=== PATIENT | male | born 2000 | race Caucasian/White ===

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

== ENCOUNTER 2018-08-27 11:49 | Emergency (ER) | payer OTHER ==
[~2018-08-27] VITALS: Ht 180.3 cm; Wt 99.8 kg
[~2018-08-27 11:49] MED LIST changes: +ONDA4TAB8 SL
--- OUTSIDE RECORDS SUMMARY | 2018-08-27 11:55 | XMS REPORT | Continuity of Care Document ---
Author Organization Unknown Address Unknown Allergies Active Description Code Type Severity Reaction Onset Reported/Identified Relationship to Patient Clinical Status Yes No Known Drug Allergies [id number] Drug Allergy Unknown N/A 02/14/2010 Medications There [...] Ot Y99.8 05/02/2015 REINIER RAYA Ot K29.70 GASTRITIS, UNSPECIFIED, WITHOUT BLEEDING 05/02/2015 REINIER RAYA Ot R51 HEADACHE 07/04/2017 MARLENE ESCOBAR, REANNA Chavira Ot G43.109 MIGRAINE WITH AURA, NOT INTRACTABLE, W/O 07/04/2017 REANNA ROSARIO MD Ot R11.2 NAUSEA WITH VOMITING, UNSPECIFIED 07/04/2017 REANNA ROSARIO MD Ot Z87.820 PERSONAL HISTORY OF TRAUMATIC BRAIN INJU 07/04/2017 Ot S83.511A SPRAIN OF ANTERIOR CRUCIATE LIGAMENT OF 07/04/2017 Ot X58.XXXA EXPOSURE TO OTHER SPECIFIED FACTORS, INI 07/04/2017 Ot Y99.8 OTHER EXTERNAL CAUSE STATUS 07/06/2017 REANNA ROSARIO MD, Ot G43.109 MIGRAINE WITH AURA, NOT INTRACTABLE, W/O 07/06/2017 REANNA ROSARIO MD, Ot R11.2 NAUSEA WITH VOMITING, UNSPECIFIED 07/06/2017 REANNA ROSARIO MD, Ot Z87.820 PERSONAL HISTORY OF TRAUMATIC BRAIN INJU 07/10/2017 REANNA ROSARIO MD, Ot G43.109 MIGRAINE WITH AURA, NOT INTRACTABLE, W/O 07/10/2017 REANNA ROSARIO MD, Ot R11.2 NAUSEA WITH VOMITING, UNSPECIFIED 07/10/2017 REANNA ROSARIO MD, Ot Z87.820 PERSONAL HISTORY OF TRAUMATIC BRAIN INJU Procedures There is no data. Results Test Result Range Complete blood count (CBC) with automated white blood cell (WBC) differential - 07/04/17 06:34 Blood leukocytes automated count (number/volume) 9.8 10*3/uL 4.3-11.0 Blood erythrocytes automated count (number/volume) 5.16 10*6/uL 4.35-5.85 Venous blood hemoglobin measurement (mass/volume) 15.5 g/dL 13.3-17.7 Blood hematocrit (volume fraction) 42 % 40-54 Automated erythrocyte mean corpuscular volume 81 [foz_us] 80-99 Automated erythrocyte mean corpuscular hemoglobin (mass per erythrocyte) 30 pg 25-34 Automated erythrocyte mean corpuscular hemoglobin concentration measurement ( mass/volume) 37 g/dL 32-36 Automated erythrocyte distribution width ratio 12.2 % 10.0-14.5 Automated blood platelet count (count/volume) 239 10*3/uL 130-400 Automated blood platelet mean volume measurement 10.3 [foz_us] 7.4-10.4 Automated blood neutrophils/100 leukocytes 71 % 42-75 Automated blood lymphocytes/100 leukocytes 19 % 12-44 Blood monocytes/100 leukocytes 9 % 0-12 Automated blood eosinophils/100 leukocytes 1 % 0-10 Automated blood basophils/100 leukocytes 1 % 0-10 Blood neutrophils automated count (number/volume) 6.9 10*3 1.8-7.8 Blood lymphocytes automated count (number/volume) 1.8 10*3 1.0-4.0 Blood monocytes automated count (number/volume) 0.9 10*3 0.0-1.0 Automated eosinophil count 0.1 10*3/uL 0.0-0.3 Automated blood basophil count (count/volume) 0.1 10*3/uL 0.0-0.1 Comprehensive metabolic panel - 07/04/17 06:34 Serum or plasma sodium measurement (moles/volume) 139 mmol/L 135-145 Serum or plasma potassium measurement (moles/volume) 3.7 mmol/L 3.6-5.0 Serum or plasma chloride measurement (moles/volume) 107 mmol/L 98-107 Carbon dioxide 24 mmol/L 21-32 Serum or plasma anion gap determination (moles/volume) 8 mmol/L 5-14 Serum or plasma urea nitrogen measurement (mass/volume) 12 mg/dL 7-18 Serum or plasma creatinine measurement (mass/volume) 1.01 mg/dL 0.60-1.30 Serum or plasma urea nitrogen/creatinine mass ratio 12 NRG Serum or plasma creatinine measurement with calculation of estimated glomerular filtration rate > NRG Serum or plasma glucose measurement (mass/volume) 93 mg/dL 70-105 Serum or plasma calcium measurement (mass/volume) 10.0 mg/dL 8.5-10.1 Serum or plasma total bilirubin measurement (mass/volume) 0.8 mg/dL 0.1-1.0 Serum or plasma alkaline phosphatase measurement (enzymatic activity/volume) 72 U/L 60-350 Serum or plasma aspartate aminotransferase measurement (enzymatic activity/ volume) 24 U/L 5-34 Serum or plasma alanine aminotransferase measurement (enzymatic activity/volume ) 30 U/L 0-55 Serum or plasma protein measurement (mass/volume) 7.4 g/dL 6.4-8.2 Serum or plasma albumin measurement (mass/volume) 4.7 g/dL 3.2-4.5 Magnesium - 07/04/17 06:34 Magnesium 2.4 mg/dL 1.8-2.4 Encounters ACCT No. Visit Date/Time Discharge Status Pt. Type Provider Facility Loc./Unit Complaint [id number] 07/04/2017 05:30:00 07/04/2017 08:34:00 DIS Emergency MARLENE ESCOBAR, REANNA Chavira [facility] ER NAUSEA HEAD PRESSURE [id number] 05/02/2015 19:16:00 05/02/2015 21:05:00 DIS Emergency REINIER RAYA [facility] ER NAUSEA,CP,LIGHTHEADED [id number] 02/04/2015 16:04:00 Document Registration [id number] 02/14/2010 11:01:00 Document Registration [id number] 12/26/2016 00:00:00 12/26/2016 23:59:00 DIS Outpatient AGUILA TEMPLETON
[2018-08-27] MEDS ORDERED: fentaNYL INJECTION 100 MCG/2 ML AMP IVP ONE ×2 (12:45→13:45)
[2018-08-27] MEDS ORDERED: ONDANSETRON 4 MG/2 ML (SDV) Z0FRAN IVP ONE (12:45)
[2018-08-27] MEDS ORDERED: NS IV 1000 ML 1,000 ML IV SCH (12:45)
[2018-08-27 12:50] LABS: BASOPHILS % (AUTO) 0 % (0-10); EOSINOPHILS % (AUTO) 0 % (0-10); HEMATOCRIT 46 % (40-54); HEMOGLOBIN 16.2 G/DL (13.3-17.7); LYMPHOCYTES # (AUTO) 0.8 X 10^3 (1.0-4.0); LYMPHOCYTES % (AUTO) 12 % (12-44); MEAN CORPUSCULAR HEMOGLOBIN 30 PG (25-34); MEAN CORPUSCULAR HGB CONC 36 G/DL (32-36); MEAN CORPUSCULAR VOLUME 84 FL (80-99); MEAN PLATELET VOLUME 10.6 FL (7.4-10.4); MONOCYTES # (AUTO) 0.6 X 10^3 (0.0-1.0); MONOCYTES % (AUTO) 8 % (0-12); NEUTROPHILS # (AUTO) 5.7 X 10^3 (1.8-7.8); NEUTROPHILS % (AUTO) 80 % (42-75); PLATELET COUNT 283 10^3/uL (130-400); RED CELL DISTRIBUTION WIDTH 12.2 % (10.0-14.5); WHITE BLOOD COUNT 7.2 10^3/uL (4.3-11.0)
[2018-08-27] MEDS ORDERED: IOHEXOL 350 MG/ML 100 ML (OMNIPAQUE 350) VIAL IV ONE (13:00)
[2018-08-27] MEDS ORDERED: HOLD METFORMIN - RECEIVED CONTRAST 20 ML VIAL IV SCH (13:00)
[2018-08-27] MEDS ORDERED: NS 100 ML (IVPB) BAG IV ONE (13:00)
[2018-08-27] MEDS ORDERED: CATHETER FLUSH 10 ML SYR IV PRN (13:00)
[2018-08-27 13:03] LABS: ALANINE AMINOTRANSFERASE 41 U/L (0-55); ALBUMIN 5.3 GM/DL (3.2-4.5); ALKALINE PHOSPHATASE 87 U/L (40-136); AMYLASE 54 U/L (25-125); BUN/CREATININE RATIO 13; CALCIUM 10.5 MG/DL (8.5-10.1); CARBON DIOXIDE 18 MMOL/L (21-32); CHLORIDE 105 MMOL/L (98-107); CREATININE SERUM 1.23 MG/DL (0.60-1.30); GFR ESTIMATED > 60; GLUCOSE 185 MG/DL (70-105); LIPASE 33 U/L (8-78); POTASSIUM 3.8 MMOL/L (3.6-5.0); SODIUM 138 MMOL/L (135-145); TOTAL PROTEIN 8.4 GM/DL (6.4-8.2)
--- NOTE | 2018-08-27 13:35 | ED Abdominal Pain ---
General Chief Complaint: Abdominal/GI Problems Stated Complaint: N,V Nursing Triage Note: PT PRESENTS TO ED WITH COMPLAINTS OF R LOWER ABDOMINAL PAIN AND N/V EVERY 30 MIN SINCE 0300 THIS AM. Sepsis Screen: No Definite Risk Source of Information: Patient Exam Limitations: No Limitations History of Present Illness Date Seen by Provider: Aug 27, 2018 Time Seen by Provider: 12:40 Initial Comments 18-year-old male who presents to the emergency room with complaints of right lower quadrant abdominal pain and nausea and vomiting that started at 3 AM this morning. He reports that the pain is sharp and radiates into his groin. He denies fevers, constipation, diarrhea. Timing/Duration: 4-6 Hours Severity/Quality: Sharp Location: RLQ Radiation: Groin (right groin) Associated Symptoms: Nausea/Vomiting Allergies and Home Medications Allergies Coded Allergies: No Known Drug Allergies (Unverified , 02/14/10) Home Medications No Active Prescriptions or Reported Meds Patient Home Medication List Home Medication List Reviewed: Yes Review of Systems Review of Systems Constitutional: see HPI; No chills, No fever Gastrointestinal: See HPI, Abdominal Pain, Nausea, Vomiting All Other Systems Reviewed Negative Unless Noted: Yes Past Dnrmnuf-Hkqulc-Usxmqq Hx Past Med/Social Hx: Reviewed Nursing Past Med/Soc Hx Patient Social History Alcohol Use: Occasionally Uses Recreational Drug Use: Yes Drug of Choice: OCC MARIJUANA Smoking Status: Never a Smoker Recent Foreign Travel: No Contact w/Someone Who Travel: No Recent Infectious Disease Expo: No Physical Abuse: No Sexual Abuse: No Mistreated: No Fear: No Immunizations Up To Date PED Vaccines UTD: Yes Past Medical History Surgeries: Yes (R KNEE) Orthopedic Respiratory: No Cardiac: No Neurological: Yes (MULTIPLE CONCUSSIONS) Concussion, Headaches /Migraines Reproductive Disorders: No Sexually Transmitted Disease: No Genitourinary: No Gastrointestinal: No Musculoskeletal: No Endocrine: No HEENT: No Cancer: No Psychosocial: No Integumentary: No Blood Disorders: No Family Medical History Reviewed Nursing Family Hx No Pertinent Family Hx Physical Exam Vital Signs Vital Signs - First Documented 08/27/18 12:30 Temp 98.6 Pulse 127 Resp 20 B/P (MAP) 157/69 (98) Pulse Ox 98 Capillary Refill : Less Than 3 Seconds Height/Weight/BMI Height: 5'11.00" Weight: 220lbs. oz. 99.542342ab; 28.12 BMI Method:Stated General Appearance: WD/WN, no apparent distress Respiratory: chest non-tender, lungs clear, normal breath sounds, no respiratory distress, no accessory muscle use Cardiovascular: normal peripheral pulses, regular rate, rhythm, no edema, no gallop, no JVD, no murmur Gastrointestinal: normal bowel sounds, soft, no organomegaly, no pulsatile mass , rebound, tenderness Extremities: normal capillary refill Neurologic/Psychiatric: alert, normal mood/affect, oriented x 3 Skin: normal color, warm/dry Progress/Results/Core Measures Results/Orders Lab Results Laboratory Tests Test 08/27/18 12:28 08/27/18 13:42 Range/Units White Blood Count 7.2 4.3-11.0 10^3/uL Red Blood Count 5.45 4.35-5.85 10^6/uL Hemoglobin 16.2 13.3-17.7 G/DL Hematocrit 46 40-54 % Mean Corpuscular Volume 84 80-99 FL Mean Corpuscular Hemoglobin 30 25-34 PG Mean Corpuscular Hemoglobin Concent 36 32-36 G/DL Red Cell Distribution Width 12.2 10.0-14.5 % Platelet Count 283 130-400 10^3/uL Mean Platelet Volume 10.6 H 7.4-10.4 FL Neutrophils (%) (Auto) 80 H 42-75 % Lymphocytes (%) (Auto) 12 12-44 % Monocytes (%) (Auto) 8 0-12 % Eosinophils (%) (Auto) 0 0-10 % Basophils (%) (Auto) 0 0-10 % Neutrophils # (Auto) 5.7 1.8-7.8 X 10^3 Lymphocytes # (Auto) 0.8 L 1.0-4.0 X 10^3 Monocytes # (Auto) 0.6 0.0-1.0 X 10^3 Eosinophils # (Auto) 0.0 0.0-0.3 10^3/uL Basophils # (Auto) 0.0 0.0-0.1 10^3/uL Sodium Level 138 135-145 MMOL/L Potassium Level 3.8 3.6-5.0 MMOL/L Chloride Level 105 98-107 MMOL/L Carbon Dioxide Level 18 L 21-32 MMOL/L Anion Gap 15 H 5-14 MMOL/L Blood Urea Nitrogen 16 7-18 MG/DL Creatinine 1.23 0.60-1.30 MG/DL Estimat Glomerular Filtration Rate > 60 BUN/Creatinine Ratio 13 Glucose Level 185 H 70-105 MG/DL Calcium Level 10.5 H 8.5-10.1 MG/DL Corrected Calcium 8.5-10.1 MG/DL Total Bilirubin 1.0 0.1-1.0 MG/DL Aspartate Amino Transf (AST/SGOT) 33 5-34 U/L Alanine Aminotransferase (ALT/SGPT) 41 0-55 U/L Alkaline Phosphatase 87 40-136 U/L Total Protein 8.4 H 6.4-8.2 GM/DL Albumin 5.3 H 3.2-4.5 GM/DL Amylase Level 54 25-125 U/L Lipase 33 8-78 U/L Urine Color YELLOW Urine Clarity SLIGHTLY CLOUDY Urine pH 5 5-9 Urine Specific [place] 1.010 L 1.016-1.022 Urine Protein 2+ H NEGATIVE Urine Glucose (UA) NEGATIVE NEGATIVE Urine Ketones 1+ H NEGATIVE Urine Nitrite NEGATIVE NEGATIVE Urine Bilirubin NEGATIVE NEGATIVE Urine Urobilinogen 1 NORMAL MG/DL Urine Leukocyte Esterase 1+ H NEGATIVE Urine RBC (Auto) 1+ H NEGATIVE Urine RBC RARE /HPF Urine WBC RARE /HPF Urine Squamous Epithelial Cells NONE /HPF Urine Crystals NONE /LPF Urine Bacteria NEGATIVE /HPF Urine Casts NONE /LPF Urine Mucus NEGATIVE /LPF Urine Culture Indicated NO My Orders Orders - LEONOR CHINCHILLA Comprehensive Metabolic Panel (08/27/18 12:44) Lipase (08/27/18 12:44) Amylase (08/27/18 12:44) Ua Culture If Indicated (08/27/18 12:44) Ed Iv/Invasive Line Start (08/27/18 12:44) Cbc With Automated Diff (08/27/18 12:44) Ct Abd/Pelv W (Appendicitis) (08/27/18 12:44) Fentanyl Injection (Sublimaze Injection (08/27/18 12:45) Ns Iv 1000 Ml (Sodium Chloride 0.9%) (08/27/18 12:45) Ondansetron Injection (Zofran Injectio (08/27/18 12:45) Iohexol Injection (Omnipaque 350 Mg/Ml 1 (08/27/18 13:00) Received Contrast (Hold Metformin- Contr (08/27/18 13:00) Sodium Chloride Flush (Catheter Flush Sy (08/27/18 13:00) Ns (Ivpb) (Sodium Chloride 0.9% Ivpb Bag (08/27/18 13:00) Fentanyl Injection (Sublimaze Injection (08/27/18 13:45) Hydrocodone/Apap 5/325 Tablet (Lortab 5 (08/27/18 14:45) Hyoscyamine Sl Tablet (Levsin Sl Tablet) (08/27/18 14:45) Medications Given in ED Vital Signs/I&O 08/27/18 08/27/18 12:30 15:07 Temp 98.6 Pulse 127 59 Resp 20 20 B/P (MAP) 157/69 (98) 160/87 (111) Pulse Ox 98 99 08/29/18 00:00 Intake Total 1000 ml Balance 1000 ml Blood Pressure Mean: 98 Progress Progress Note : Time: 14:38 Progress Note I have bandar and evaluated the patient. I have informed him of his laboratory and imaging studies. His pain and nausea has resolved after medication. He agrees with plans of care, plans for discharge, return precautions were given. Departure Impression Primary Impression: Gastritis Disposition: 01 HOME, SELF-CARE Condition: Stable/Unchanged Departure-Patient Inst. Decision time for Depature: 14:38 Referrals: NO,LOCAL PHYSICIAN (PCP/Family) Primary Care Physician Patient Instructions: Viral Gastroenteritis, Adult (DC) Add. Discharge Instructions: Take medications as directed. Follow-up with your primary care provider within 1 week for recheck. Clear liquid diet for the next 24 hours and advance as tolerated. Return back to the emergency room for worsening symptoms or concerns as needed. All discharge instructions reviewed with patient and/or family. Voiced understanding. Scripts No Active Prescriptions or Reported Meds LEONOR CHINCHILLA Aug 27, 2018 13:35
--- NOTE | 2018-08-27 13:46 | Diagnostic Imaging Report ---
PROCEDURE: CT abdomen and pelvis with contrast, rule out appendicitis. TECHNIQUE: Multiple contiguous axial images were obtained through the abdomen and pelvis after the administration of intravenous contrast. INDICATION: Abdominal pain, nausea, and vomiting. COMPARISON: No priors. FINDINGS: There is no appendicitis. There is no diverticulitis. There is no evidence for bowel, biliary, or urinary tract obstruction. There is no ascites, abscess, hematoma, or other fluid collection. No pneumatosis or free gas. The liver, gallbladder, bile ducts, spleen, adrenals, and pancreas all nonacute. The aortoiliac vessels are nonaneurysmal. No ascites, abscess, hematoma, or other fluid collection. Prostate, seminal vesicles, and urinary bladder are unremarkable. The lung bases and the osseous structures appeared nonacute. IMPRESSION: No obstructive features, inflammatory process, or acute-appearing abdominopelvic abnormalities. Dictated by: Dictated on workstation # [id number]
[2018-08-27 13:48] LABS: BILIRUBIN,URINE NEGATIVE (NEGATIVE); CLARITY,URINE SLIGHTLY CLOUDY; COLOR,URINE YELLOW; GLUCOSE, URINE (UA) NEGATIVE (NEGATIVE); KETONES,URINE 1+ (NEGATIVE); LEUKOCYTE ESTERASE ,URINE 1+ (NEGATIVE); NITRITE,URINE NEGATIVE (NEGATIVE); PH,URINE 5 (5-9); PROTEIN,URINE 2+ (NEGATIVE); UROBILINOGEN,URINE 1 MG/DL (NORMAL)
[2018-08-27 13:55] LABS: BACTERIA,URINE NEGATIVE /HPF; RBC,URINE RARE /HPF; WBC,URINE RARE /HPF
[2018-08-27] MEDS ORDERED: ACHD5005 PO (14:40)
[2018-08-27] MEDS ORDERED: HYOS0.1283 SL (14:40)
[2018-08-27] MEDS ORDERED: ONDN4T PO (14:40)
[2018-08-27] MEDS ORDERED: HYDROcodone/APAP 5 MG/325 MG (LORTAB) TAB PO ONE (14:45)
[2018-08-27] MEDS ORDERED: HYOSCYAMINE 0.125 MG (LEVSIN) TAB PO ONE (14:45)
[2018-08-27 15:07] VITALS: BP 160/87
== END 2018-08-27 15:07 | disposition home or self-care (01) ==
LOC: EDUNIT# 11:49 → ER 11:50
DX: K29.70 Gastritis, unspecified, without bleeding (principal); G43.909 Migraine, unspecified, not intractable, without status migrainosus; F12.10 Cannabis abuse, uncomplicated
CPT/HCPCS: 36415; 74177; 80053; 81000; 82150; 83690; 85025

== ENCOUNTER 2018-08-28 23:37 | Inpatient (IN) | payer OTHER ==
[~2018-08-28] VITALS: Ht 180.3 cm; Wt 99.3 kg
[~2018-08-28 23:37] MED LIST changes: +ACHD5005 PO; +HYOS0.1283 SL; +ONDN4T PO
--- OUTSIDE RECORDS SUMMARY | 2018-08-28 23:44 | XMS REPORT | Continuity of Care Document ---
Author Organization Unknown Address Unknown Allergies Active Description Code Type Severity Reaction Onset Reported/Identified Relationship to Patient Clinical Status Yes No Known Drug Allergies [id number] Drug Allergy Unknown N/A 02/14/2010 Medications There [...] Status Pt. Type Provider Facility Loc./Unit Complaint [id number] 07/04/2017 05:30:00 07/04/2017 08:34:00 DIS Emergency MARLENE ESCOBAR, REANNA Chavira [facility] ER NAUSEA HEAD PRESSURE [id number] 05/02/2015 19:16:00 05/02/2015 21:05:00 DIS Emergency REINIER RAYA [facility] ER NAUSEA,CP,LIGHTHEADED [id number] 02/04/2015 16:04:00 Document Registration [id number] 02/14/2010 11:01:00 Document Registration [id number] 12/26/2016 00:00:00 12/26/2016 23:59:00 DIS Outpatient AGUILA TEMPLETON
[2018-08-29] MEDS ORDERED: NS IV 1000 ML 1,000 ML IV ONE ×2 (00:09→00:18)
[2018-08-29 00:16] LABS: BASOPHILS % (AUTO) 0 % (0-10); EOSINOPHILS # (AUTO) 0.2 10^3/uL (0.0-0.3); EOSINOPHILS % (AUTO) 2 % (0-10); HEMATOCRIT 46 % (40-54); HEMOGLOBIN 16.2 G/DL (13.3-17.7); LYMPHOCYTES % (AUTO) 10 % (12-44); MEAN CORPUSCULAR HEMOGLOBIN 29 PG (25-34); MEAN CORPUSCULAR HGB CONC 35 G/DL (32-36); MEAN CORPUSCULAR VOLUME 83 FL (80-99); MEAN PLATELET VOLUME 9.9 FL (7.4-10.4); MONOCYTES # (AUTO) 0.9 X 10^3 (0.0-1.0); MONOCYTES % (AUTO) 9 % (0-12); NEUTROPHILS % (AUTO) 79 % (42-75); PLATELET COUNT 237 10^3/uL (130-400); RED CELL DISTRIBUTION WIDTH 12.4 % (10.0-14.5); WHITE BLOOD COUNT 10.1 10^3/uL (4.3-11.0)
[2018-08-29] MEDS ORDERED: PROMETHAZINE INJ 25 MG/ML (PHENERGAN) AMP IVP ONE (00:30)
[2018-08-29] MEDS ORDERED: ONDANSETRON 4 MG/2 ML (SDV) Z0FRAN IVP ONE (00:30)
[2018-08-29] MEDS ORDERED: FAMOTIDINE 20MG/2ML IV (PEPCID) IVP ONE (00:30)
[2018-08-29 00:48] LABS: BILIRUBIN,URINE NEGATIVE (NEGATIVE); CLARITY,URINE CLEAR; COLOR,URINE YELLOW; GLUCOSE, URINE (UA) NEGATIVE (NEGATIVE); KETONES,URINE 3+ (NEGATIVE); LEUKOCYTE ESTERASE ,URINE 1+ (NEGATIVE); NITRITE,URINE NEGATIVE (NEGATIVE); PH,URINE 6 (5-9); PROTEIN,URINE 2+ (NEGATIVE); UROBILINOGEN,URINE 1 MG/DL (NORMAL)
[2018-08-29 01:00] LABS: ALANINE AMINOTRANSFERASE 4432 U/L (0-55); ALBUMIN 4.8 GM/DL (3.2-4.5); ALKALINE PHOSPHATASE 95 U/L (40-136); BILIRUBIN,TOTAL 2.2 MG/DL (0.1-1.0); BUN/CREATININE RATIO 8; CALCIUM 10.1 MG/DL (8.5-10.1); CARBON DIOXIDE 22 MMOL/L (21-32); CHLORIDE 103 MMOL/L (98-107); CREATININE SERUM 1.06 MG/DL (0.60-1.30); GFR ESTIMATED > 60; GLUCOSE 78 MG/DL (70-105); LIPASE 21 U/L (8-78); MAGNESIUM 2.1 MG/DL (1.8-2.4); POTASSIUM 3.6 MMOL/L (3.6-5.0); SODIUM 140 MMOL/L (135-145); TOTAL PROTEIN 7.7 GM/DL (6.4-8.2)
[2018-08-29 01:01] LABS: AMPHETAMINE SCREEN, URINE NEGATIVE (NEGATIVE); BACTERIA,URINE TRACE /HPF; BARBITURATE SCREEN URINE NEGATIVE (NEGATIVE); BENZODIAZEPINES SCREEN URINE NEGATIVE (NEGATIVE); CANNABINOID SCREEN, URINE NEGATIVE (NEGATIVE); COCAINE SCREEN URINE NEGATIVE (NEGATIVE); METHAMPHETAMINE SCREEN URINE S NEGATIVE (NEGATIVE); OPIATE SCREEN URINE NEGATIVE (NEGATIVE); RBC,URINE RARE /HPF; SQUAMOUS EPITHELIAL CELL,UR RARE /HPF; TRICYCLIC ANTIDEPRESSANTS SCRE NEGATIVE (NEGATIVE); WBC,URINE 0-2 /HPF
[2018-08-29 01:02] LABS: METHADONE STAT NEGATIVE (NEGATIVE); OXYCODONE STAT NEGATIVE (NEGATIVE); PROPOXYPHENE STAT NEGATIVE (NEGATIVE)
[2018-08-29] MEDS ORDERED: fentaNYL INJECTION 100 MCG/2 ML AMP IVP ONE (01:30)
--- NOTE | 2018-08-29 04:00 | ED Abdominal Pain ---
General Chief Complaint: Abdominal/GI Problems Stated Complaint: SOB,PASSING OUT,POSS APPENDICITIS Nursing Triage Note: PATIENT AMBULATORY TO ER WITH COMPLAINT OF ABDOMINAL PAIN TO ALL QUADRANTS AND VOMITING SINCE YESTERDAY. PATIENT STATES HE WAS SEEN HERE IN THIS ER YESTERDAY WITH SAME COMPLAINT AND HAD CT SCAN AND LABS. HE WAS SENT HOME ON ZOFRAN BUT CONTINUES TO VOMIT MULTIPLE TIMES TODAY AND IS UNABLE TO KEEP DOWN LIQUIDS. PATIENT STATES HE HAS FELT LIKE PASSING OUT MULTIPLE TIMES TODAY. HE STATES HE FEELS MUCH WORSE TODAY THAN YESTERDAY. Sepsis Screen: No Definite Risk Source of Information: Patient Exam Limitations: No Limitations History of Present Illness Date Seen by Provider: Aug 29, 2018 Time Seen by Provider: 00:05 Initial Comments This 18-year-old young man presents to the emergency room with diffuse abdominal pain, worse in the left upper quadrant, associated with persistent nausea vomiting. He was seen in this ER on August 27 and was thought to possibly have gastritis. He received a CT scan of the abdomen and pelvis showing no acute abnormalities. He was prescribed medications including Zofran and Levsin that he has had no improvement with these treatments. He is unable to stay hydrated at home and states his pain is much worse than it was on August 27. He reports drinking about 6 beers a few days ago. He reports lightheadedness with associated syncope 2. He feels short of breath at times. He denies any fever, constipation, or diarrhea. Last bowel movement was yesterday and was normal. He denies any alcohol use within the last 48 hours. He used marijuana about 10 days ago. Allergies and Home Medications Allergies Coded Allergies: No Known Drug Allergies (Unverified , 02/14/10) Home Medications Famotidine 20 Mg Tablet, 20 MG PO BID Prescribed by: REINIER HEARD on 05/02/152056 Hydrocodone Bit/Acetaminophen 1 Tab Tab, 1 EACH PO Q4-6HR PRN for PAIN-MODERATE Prescribed by: LEONOR CHINCHILLA on 08/27/18 144 Hyoscyamine Sulfate 0.125 Mg Tab.subl, 0.125 MG SL Q4H PRN for CRAMPS Prescribed by: LEONOR CHINCHILLA on 08/27/18 144 Ondansetron 4 Mg Tab.rapdis, 4 MG PO Q6H PRN for NAUSEA Prescribed by: REINIER HEARD on 05/02/152056 Ondansetron 4 Mg Tab.rapdis, 4 MG SL Q4H PRN for NAUSEA/VOMITING-1ST LINE Prescribed by: REANNA SERRANO on 07/04/17 0826 Ondansetron HCl 4 Mg Tab, 4 MG PO Q4H PRN for NAUSEA/VOMITING-1ST LINE Prescribed by: LEONOR CHINCHILLA on 08/27/18 1440 Patient Home Medication List Home Medication List Reviewed: Yes Review of Systems Review of Systems Constitutional: no symptoms reported EENTM: No Symptoms Reported Respiratory: No Symptoms Reported Cardiovascular: See HPI, Syncope Gastrointestinal: See HPI Genitourinary: No Symptoms Reported Musculoskeletal: no symptoms reported Skin: no symptoms reported Psychiatric/Neurological: No Symptoms Reported Endocrine: No Symptoms Reported Hematologic/Lymphatic: No Symptoms Reported Past Cruqqgn-Vngkui-Qpzrck Hx Past Med/Social Hx: Reviewed Nursing Past Med/Soc Hx Patient Social History Alcohol Use: Occasionally Uses Recreational Drug Use: Yes Drug of Choice: MARIJUANA Smoking Status: Never a Smoker 2nd Hand Smoke Exposure: No Recent Foreign Travel: No Contact w/Someone Who Travel: No Recent Infectious Disease Expo: No Recent Hopitalizations: No Immunizations Up To Date PED Vaccines UTD: Yes Seasonal Allergies Seasonal Allergies: No Past Medical History Surgeries: Yes (R KNEE) Orthopedic Respiratory: No Cardiac: No Neurological: Yes (MULTIPLE CONCUSSIONS) Concussion, Headaches /Migraines Reproductive Disorders: No Sexually Transmitted Disease: No Genitourinary: No Gastrointestinal: No Musculoskeletal: No Endocrine: No HEENT: No Cancer: No Psychosocial: No Integumentary: No Blood Disorders: No Family Medical History No Pertinent Family Hx Physical Exam Vital Signs Vital Signs - First Documented 08/28/18 23:48 Temp 99.2 Pulse 75 Resp 20 B/P (MAP) 148/89 (108) Pulse Ox 99 O2 Delivery Room Air Capillary Refill : Less Than 3 Seconds Height/Weight/BMI Height: 5'11.00" Weight: 220lbs. oz. 99.150772ky; 28.12 BMI Method:Stated General Appearance: WD/WN, no apparent distress HEENT: PERRL/EOMI, normal ENT inspection Neck: normal inspection Respiratory: lungs clear, normal breath sounds, no respiratory distress, no accessory muscle use Cardiovascular: regular rate, rhythm, no edema, no murmur Gastrointestinal: soft, abnormal bowel sounds (decreased), guarding, tenderness (diffuse, greatest in the left upper quadrant) Extremities: normal inspection, no pedal edema Neurologic/Psychiatric: car cleaner II-XII nml as tested, no motor/sensory deficits, alert, normal mood/affect, oriented x 3 Skin: normal color, warm/dry Progress/Results/Core Measures Results/Orders Lab Results Laboratory Tests Test 08/28/18 23:59 08/29/18 00:01 08/29/18 00:43 Range/Units White Blood Count 10.1 4.3-11.0 10^3/uL Red Blood Count 5.52 4.35-5.85 10^6/uL Hemoglobin 16.2 13.3-17.7 G/DL Hematocrit 46 40-54 % Mean Corpuscular Volume 83 80-99 FL Mean Corpuscular Hemoglobin 29 25-34 PG Mean Corpuscular Hemoglobin Concent 35 32-36 G/DL Red Cell Distribution Width 12.4 10.0-14.5 % Platelet Count 237 130-400 10^3/uL Mean Platelet Volume 9.9 7.4-10.4 FL Neutrophils (%) (Auto) 79 H 42-75 % Lymphocytes (%) (Auto) 10 L 12-44 % Monocytes (%) (Auto) 9 0-12 % Eosinophils (%) (Auto) 2 0-10 % Basophils (%) (Auto) 0 0-10 % Neutrophils # (Auto) 8.0 H 1.8-7.8 X 10^3 Lymphocytes # (Auto) 1.0 1.0-4.0 X 10^3 Monocytes # (Auto) 0.9 0.0-1.0 X 10^3 Eosinophils # (Auto) 0.2 0.0-0.3 10^3/uL Basophils # (Auto) 0.0 0.0-0.1 10^3/uL Sodium Level 140 135-145 MMOL/L Potassium Level 3.6 3.6-5.0 MMOL/L Chloride Level 103 98-107 MMOL/L Carbon Dioxide Level 22 21-32 MMOL/L Anion Gap 15 H 5-14 MMOL/L Blood Urea Nitrogen 8 7-18 MG/DL Creatinine 1.06 0.60-1.30 MG/DL Estimat Glomerular Filtration Rate > 60 BUN/Creatinine Ratio 8 Glucose Level 78 70-105 MG/DL Calcium Level 10.1 8.5-10.1 MG/DL Corrected Calcium 8.5-10.1 MG/DL Magnesium Level 2.1 1.8-2.4 MG/DL Total Bilirubin 2.2 H 0.1-1.0 MG/DL Aspartate Amino Transf (AST/SGOT) 3490 #H 5-34 U/L Alanine Aminotransferase (ALT/SGPT) 4432 #H 0-55 U/L Alkaline Phosphatase 95 40-136 U/L C-Reactive Protein High Sensitivity 0.79 H 0.00-0.50 MG/DL Total Protein 7.7 6.4-8.2 GM/DL Albumin 4.8 H 3.2-4.5 GM/DL Lipase 21 8-78 U/L Serum Alcohol < 10 <10 MG/DL Urine Color YELLOW Urine Clarity CLEAR Urine pH 6 5-9 Urine Specific [place] 1.010 L 1.016-1.022 Urine Protein 2+ H NEGATIVE Urine Glucose (UA) NEGATIVE NEGATIVE Urine Ketones 3+ H NEGATIVE Urine Nitrite NEGATIVE NEGATIVE Urine Bilirubin NEGATIVE NEGATIVE Urine Urobilinogen 1 NORMAL MG/DL Urine Leukocyte Esterase 1+ H NEGATIVE Urine RBC (Auto) 1+ H NEGATIVE Urine RBC RARE /HPF Urine WBC 0-2 /HPF Urine Squamous Epithelial Cells RARE /HPF Urine Crystals NONE /LPF Urine Bacteria TRACE /HPF Urine Casts NONE /LPF Urine Mucus SMALL H /LPF Urine Culture Indicated NO Urine Opiates Screen NEGATIVE NEGATIVE Urine Oxycodone Screen NEGATIVE NEGATIVE Urine Methadone Screen NEGATIVE NEGATIVE Urine Propoxyphene Screen NEGATIVE NEGATIVE Urine Barbiturates Screen NEGATIVE NEGATIVE Ur Tricyclic Antidepressants Screen NEGATIVE NEGATIVE Urine Phencyclidine Screen NEGATIVE NEGATIVE Urine Amphetamines Screen NEGATIVE NEGATIVE Urine Methamphetamines Screen NEGATIVE NEGATIVE Urine Benzodiazepines Screen NEGATIVE NEGATIVE Urine Cocaine Screen NEGATIVE NEGATIVE Urine Cannabinoids Screen NEGATIVE NEGATIVE My Orders Orders - REANNA ROSARIO MD Cbc With Automated Diff (08/29/18 00:09) Comprehensive Metabolic Panel (08/29/18 00:09) Hs C Reactive Protein (08/29/18 00:09) Drug Screen Stat (Urine) (08/29/18 00:09) Lipase (08/29/18 00:09) Magnesium (08/29/18 00:09) Ua Culture If Indicated (08/29/18 00:09) Ed Iv/Invasive Line Start (08/29/18 00:09) Ns Iv 1000 Ml (Sodium Chloride 0.9%) (08/29/18 00:09) Famotidine Injection (Pepcid Injection) (08/29/18 00:30) Ondansetron Injection (Zofran Injectio (08/29/18 00:30) Promethazine Injection (Phenergan Injec (08/29/18 00:30) Ed Iv/Invasive Line Start (08/29/18 00:18) Ns Iv 1000 Ml (Sodium Chloride 0.9%) (08/29/18 00:18) Alcohol (08/29/18 00:19) Chest Pa/Lat (2 View) (08/29/18 00:20) Abdomen, Flat & Upright/Decub (08/29/18 00:20) Hepatitis Panel Acute (08/29/18 01:22) Fentanyl Injection (Sublimaze Injection (08/29/18 01:30) Medications Given in ED Current Medications Medications Dose Ordered Sig/Maryana Route Start Time Stop Time Status Last Admin Dose Admin Famotidine 20 mg ONCE ONCE IVP 08/29/18 00:30 08/29/18 00:31 DC 08/29/18 00:32 20 MG Fentanyl Citrate 75 mcg ONCE ONCE IVP 08/29/18 01:30 08/29/18 01:31 DC 08/29/18 01:40 75 MCG Ondansetron HCl 8 mg ONCE ONCE IVP 08/29/18 00:30 08/29/18 00:31 DC 08/29/18 00:32 8 MG Promethazine HCl 25 mg ONCE ONCE IVP 08/29/18 00:30 08/29/18 00:31 DC 08/29/18 00:35 25 MG Sodium Chloride 1,000 ml @ 0 mls/hr Q0M ONCE IV 08/29/18 00:09 08/29/18 00:11 DC 08/29/18 00:30 1,000 MLS/HR Vital Signs/I&O 08/28/18 23:48 Temp 99.2 Pulse 75 Resp 20 B/P (MAP) 148/89 (108) Pulse Ox 99 O2 Delivery Room Air Blood Pressure Mean: 108 Progress Progress Note #1: Time: 04:02 Progress Note Patient has been treated with Zofran, Phenergan, fentanyl, Pepcid, and IV fluids. This improved his symptoms. He is noted to have a marketed elevation in transaminases. This was discussed with Dr. Rodrigez, hospitalist on-call. He feels patient would be best served by having a conversation with either a hospitalist at a facility with rn immunology or with a rn immunology directly. A call will be placed to [facility]. Progress Note #2: Time: 04:21 Progress Note Case was discussed with Dr. Boucher, hospitalist at [facility]. Based on the lab profile, he believes this patient likely has viral hepatitis. He did not feel transfer was appropriate. He recommended supportive care and ultrasound to be performed at [facility]. If progression of patient symptoms and workup warrants transfer later, he would be open to that. Patient is comfortable at this time and agrees with admission to [facility]. Diagnostic Imaging Diagonstic Imaging: Xray Plain Films/CT/US/NM/MRI: chest Comments Two-view chest x-ray viewed by me. Report not yet available. No acute abnormalities appreciated. Diagonstic Imaging: Xray Plain Films/CT/US/NM/MRI: abdomen, pelvis Comments Two-view abdomen and pelvis viewed by me and report not yet available. No acute abnormalities appreciated. Departure Communication (Admissions) Time/Spoke to Admitting Phy: 04:20 Dr. Rodrigez Impression Primary Impression: Acute hepatitis Additional Impressions: Generalized abdominal pain Nausea and vomiting Qualified Codes: R11.2 - Nausea with vomiting, unspecified Disposition: ADMITTED INPATIENT Condition: Improved Admissions Decision to Admit Reason: Admit from ER (General) Decision to Admit/Date: Aug 29, 2018 Time/Decision to Admit Time: 01:20 Departure-Patient Inst. Referrals: GEOFFREY EDWARDS (PCP/Family) Primary Care Physician REANNA ROSARIO MD Aug 29, 2018 04:00
--- OUTSIDE RECORDS SUMMARY | 2018-08-29 05:17 | XMS REPORT | Continuity of Care Document ---
Author Organization Unknown Address Unknown Allergies Active Description Code Type Severity Reaction Onset Reported/Identified Relationship to Patient Clinical Status Yes No Known Drug Allergies [id number] Drug Allergy Unknown N/A 02/14/2010 Medications There [...] REINIER RAYA Ot R51 HEADACHE 07/04/2017 MARLENE ESOCBAR, REANNA Chavira Ot G43.109 MIGRAINE WITH AURA, [...] Status Pt. Type Provider Facility Loc./Unit Complaint [id number] 07/04/2017 05:30:00 07/04/2017 08:34:00 DIS Emergency MARLENE ESCOBAR, REANNA Chavira [facility] ER NAUSEA HEAD PRESSURE [id number] 05/02/2015 19:16:00 05/02/2015 21:05:00 DIS Emergency REINIER RYAA [facility] ER NAUSEA,CP,LIGHTHEADED [id number] 02/04/2015 16:04:00 Document Registration [id number] 02/14/2010 11:01:00 Document Registration [id number] 12/26/2016 00:00:00 12/26/2016 23:59:00 DIS Outpatient AGUILA TEMPLETON
[2018-08-29 05:35] VITALS: BP 145/69
--- NOTE | 2018-08-29 05:37 | NUR ---
RUPERT PIMENTEL admitted to room 430-1, with an admitting diagnosis of ACUTE HEPATITIS, ABD PAIN AND N/V on 08/29/18 from ER via WHEELCHAIR, accompanied by STAFF.RUPERT PIMENTEL introduced to surroundings, call light, bed controls, phone, TV, temperature control, lights, meal times, smoking policy, visitor policy, side rail policy, bathrooms and showers. Patient Rights given to patient in the handbook.RUPERT PIMENTEL verbalizes understanding that [facility] is not responsible for the loss or damage to any personal effects or valuables that are kept in the patients posession during their hospitalization.
[2018-08-29] MEDS ORDERED: ONDANSETRON 4 MG/2 ML (SDV) Z0FRAN IV PRN (06:00)
[2018-08-29] MEDS ORDERED: PROMETHAZINE INJ 25 MG/ML (PHENERGAN) AMP IV PRN (06:00)
[2018-08-29] MEDS: D5 1/2 NS W/KCL 20 MEQ/L 1,000 ML IV SCH ×3 (06:09→21:52)
--- NOTE | 2018-08-29 07:32 | Diagnostic Imaging Report ---
INDICATION: Abdominal pain and vomiting for 2 days EXAMINATION: Two-view chest 08/29/2018 FINDINGS: The cardiomediastinal silhouette is unremarkable. The pulmonary vasculature is within normal limits. The lungs and pleural spaces are clear. IMPRESSION: No evidence of an acute cardiopulmonary process. Dictated by: Dictated on workstation # [id number]
--- NOTE | 2018-08-29 07:34 | Diagnostic Imaging Report ---
INDICATION: Nausea and vomiting for 2 days EXAMINATION: Abdomen 08/29/2018 FINDINGS: No free air is seen. No dilated loops of bowel appreciated. There is stool throughout the colon to the rectosigmoid. IMPRESSION: 1. Nonobstructive bowel gas pattern. Dictated by: Dictated on workstation # [id number]
[2018-08-29 08:00] VITALS: BP 130/75
[2018-08-29] MEDS ORDERED: IBUPROFEN 600 MG (MOTRIN) TAB PO ONE (08:15)
[2018-08-29] MEDS ORDERED: IBUPROFEN 600 MG (MOTRIN) TAB PO NR (08:15)
--- NOTE | 2018-08-29 09:38 | NUR ---
SPOKE WITH THE PATIENT ABOUT HIS MEDICATIONS. HE STATES HE DID RECEIVE SOME PRINTED PRESCRIPTIONS FROM THE EMERGENCY ROOM RECENTLY HOWEVER HE HAS NOT FILLED THEM YET. I REMOVED THEM FROM THE MED REC AT THIS TIME, THEY WERE HYDROCODONE, LEVSIN, AND ZOFRAN.
[2018-08-29] MEDS: FAMOTIDINE 20MG/2ML IV (PEPCID) IV SCH ×2 (10:05→20:28)
--- NOTE | 2018-08-29 11:09 | Diagnostic Imaging Report ---
PROCEDURE: US Gallbladder. TECHNIQUE: Multiple Real-time grayscale images were obtained over the right upper quadrant in various projections. INDICATION: Acute hepatitis. FINDINGS: The liver is normal in size without focal lesions. There is no biliary ductal dilatation. The common bile duct measures 5.8 mm. There are no focal liver lesions. There is no cholelithiasis, gallbladder wall thickening, or pericholecystic fluid. The pancreas is partially obscured by bowel gas. The right kidney is normal. There is no ascites. IMPRESSION: Unremarkable right upper quadrant ultrasound. Dictated by: Dictated on workstation # [id number]
[2018-08-29 12:00] VITALS: BP 161/70
--- NOTE | 2018-08-29 12:36 | History & Physicial (CHS) ---
HPI History of Present Illness: 18 yo male started having severe abdominal pain on Tuesday, was seen in ER and thought to have gastritis. He continued to have worsening LLQ and epigastric pain as well as vomiting to the point that he was getting very lightheaded and believes he passed out, although unwitnessed. He denies using any tylenol. He drinks occasionally (once per week or so, 10 beers at a time in general), last drink was 6 beers a few nights prior these issues. He admits to smoking THC about 2 weeks ago, denies any other substance use. Denies PMH or any OTC medications. Source: patient Date seen by provider: Aug 29, 2018 Time Seen by Provider: 10:40 Attending Physician Martinez Rodrigez MD PCP Patience Snider Consult Date of Admission Aug 29, 2018 at 04:26 Home Medications Home Medications Reviewed patient Home Medication Reconciliation performed by pharmacy medication reconciliations satellite tv technician installer and/or nursing. Patients Allergies have been reviewed. Allergies Coded Allergies: No Known Drug Allergies (Unverified , 02/14/10) TIC-Ytkbri-Syjwit Hx Patient Social History Alcohol Use: Occasionally Uses Recreational Drug Use: Yes Drug of Choice: MARIJUANA Smoking Status: Never a Smoker 2nd Hand Smoke Exposure: No Recent Foreign Travel: No Contact w/other who traveled: No Recent Hopitalizations: No Recent Infectious Disease Expo: No Past Medical History PMHx: Denies PSurgHx: Knee Family Medical History Significant Family History: No Pertinent Family Hx Review of Systems (CHC) Constitutional: dizziness; No fever; malaise EENTM: No nose congestion Respiratory: No cough; short of breath Cardiovascular: chest pain Gastrointestinal: abdominal pain; No constipation, No diarrhea, No hematemesis , No melena, No nausea, No vomiting Genitourinary: No dysuria Musculoskeletal: No joint pain Skin: No rash Psychiatric/Neurological: Denies Anxiety, Denies Depressed Reviewed Test Results Reviewed Test Results Lab Laboratory Tests Test 08/28/18 23:59 08/29/18 00:01 08/29/18 00:43 Range/Units White Blood Count 10.1 4.3-11.0 10^3/uL Red Blood Count 5.52 4.35-5.85 10^6/uL Hemoglobin 16.2 13.3-17.7 G/DL Hematocrit 46 40-54 % Mean Corpuscular Volume 83 80-99 FL Mean Corpuscular Hemoglobin 29 25-34 PG Mean Corpuscular Hemoglobin Concent 35 32-36 G/DL Red Cell Distribution Width 12.4 10.0-14.5 % Platelet Count 237 130-400 10^3/uL Mean Platelet Volume 9.9 7.4-10.4 FL Neutrophils (%) (Auto) 79 H 42-75 % Lymphocytes (%) (Auto) 10 L 12-44 % Monocytes (%) (Auto) 9 0-12 % Eosinophils (%) (Auto) 2 0-10 % Basophils (%) (Auto) 0 0-10 % Neutrophils # (Auto) 8.0 H 1.8-7.8 X 10^3 Lymphocytes # (Auto) 1.0 1.0-4.0 X 10^3 Monocytes # (Auto) 0.9 0.0-1.0 X 10^3 Eosinophils # (Auto) 0.2 0.0-0.3 10^3/uL Basophils # (Auto) 0.0 0.0-0.1 10^3/uL Sodium Level 140 135-145 MMOL/L Potassium Level 3.6 3.6-5.0 MMOL/L Chloride Level 103 98-107 MMOL/L Carbon Dioxide Level 22 21-32 MMOL/L Anion Gap 15 H 5-14 MMOL/L Blood Urea Nitrogen 8 7-18 MG/DL Creatinine 1.06 0.60-1.30 MG/DL Estimat Glomerular Filtration Rate > 60 BUN/Creatinine Ratio 8 Glucose Level 78 70-105 MG/DL Calcium Level 10.1 8.5-10.1 MG/DL Corrected Calcium 8.5-10.1 MG/DL Magnesium Level 2.1 1.8-2.4 MG/DL Total Bilirubin 2.2 H 0.1-1.0 MG/DL Aspartate Amino Transf (AST/SGOT) 3490 #H 5-34 U/L Alanine Aminotransferase (ALT/SGPT) 4432 #H 0-55 U/L Alkaline Phosphatase 95 40-136 U/L C-Reactive Protein High Sensitivity 0.79 H 0.00-0.50 MG/DL Total Protein 7.7 6.4-8.2 GM/DL Albumin 4.8 H 3.2-4.5 GM/DL Lipase 21 8-78 U/L Serum Alcohol < 10 <10 MG/DL Urine Color YELLOW Urine Clarity CLEAR Urine pH 6 5-9 Urine Specific [place] 1.010 L 1.016-1.022 Urine Protein 2+ H NEGATIVE Urine Glucose (UA) NEGATIVE NEGATIVE Urine Ketones 3+ H NEGATIVE Urine Nitrite NEGATIVE NEGATIVE Urine Bilirubin NEGATIVE NEGATIVE Urine Urobilinogen 1 NORMAL MG/DL Urine Leukocyte Esterase 1+ H NEGATIVE Urine RBC (Auto) 1+ H NEGATIVE Urine RBC RARE /HPF Urine WBC 0-2 /HPF Urine Squamous Epithelial Cells RARE /HPF Urine Crystals NONE /LPF Urine Bacteria TRACE /HPF Urine Casts NONE /LPF Urine Mucus SMALL H /LPF Urine Culture Indicated NO Urine Opiates Screen NEGATIVE NEGATIVE Urine Oxycodone Screen NEGATIVE NEGATIVE Urine Methadone Screen NEGATIVE NEGATIVE Urine Propoxyphene Screen NEGATIVE NEGATIVE Urine Barbiturates Screen NEGATIVE NEGATIVE Ur Tricyclic Antidepressants Screen NEGATIVE NEGATIVE Urine Phencyclidine Screen NEGATIVE NEGATIVE Urine Amphetamines Screen NEGATIVE NEGATIVE Urine Methamphetamines Screen NEGATIVE NEGATIVE Urine Benzodiazepines Screen NEGATIVE NEGATIVE Urine Cocaine Screen NEGATIVE NEGATIVE Urine Cannabinoids Screen NEGATIVE NEGATIVE Radiology CXR 08/29 unremarkable KUB 08/29 nonspecific bowel gas pattern, stool throughout Physical Exam-(CHC) Physical Exam Vital Signs VS - Last 72 Hours, by Label 08/28/18 08/29/18 08/29/18 08/29/18 23:48 05:27 05:35 05:41 Temp 99.2 99.2 99.5 Pulse 75 70 92 Resp 20 20 18 B/P (MAP) 148/89 (108) 140/70 (93) 145/69 Pulse Ox 99 99 98 95 O2 Delivery Room Air Room Air Room Air 08/29/18 08:00 Temp 98.1 Pulse 81 Resp 20 B/P (MAP) 130/75 (93) Pulse Ox 96 O2 Delivery Room Air Capillary Refill : Less Than 3 Seconds General Appearance: WD/WN, no apparent distress HEENT: No scleral icterus (R), No scleral icterus (L) Respiratory: lungs clear, normal breath sounds Cardiovascular: regular rate, rhythm, no edema, no murmur Gastrointestinal: normal bowel sounds, soft, tenderness (RUQ, LLQ); No hepatomegaly Extremities: no pedal edema Neurologic/Psychiatric: alert, normal mood/affect Skin: normal color, warm/dry Assessment/Plan Assessment/Plan Admission Status: Inpatient Order (span 2 midnights) Reason for Inpatient Admission: Marked elevation in liver tests with inability to keep down any liquids, requiring IV rehydration and at risk for liver decompensation. (1) Acute hepatitis Status: Acute Assessment & Plan: Unclear etiology, suspect viral. Hepatitis panel pending. GB US pending. Denies APAP use or persistent heavy EtOH use. (2) Generalized abdominal pain Status: Acute (3) Nausea and vomiting Status: Acute Assessment & Plan: Antiemetics, CLD, advance as tolerated. Qualifiers: Qualified Codes: R11.2 - Nausea with vomiting, unspecified (4) DVT prophylaxis Status: Acute Assessment & Plan: Low risk, ambulate. Clinical Quality Measures DVT/VTE Risk/Contraindication: Risk Factor Score Per Nursin RFS Level Per Nursing on Admit: 1=Low/No VTE PPX [place] BERNARDO MD Aug 29, 2018 12:36
[2018-08-29 16:00] VITALS: BP 133/74
[2018-08-29] MEDS: fentaNYL INJECTION 100 MCG/2 ML AMP IV PRN (19:50)
[2018-08-29 20:07] VITALS: BP 125/64
[2018-08-30] VITALS: BP 137/64
[2018-08-30] MEDS: D5 1/2 NS W/KCL 20 MEQ/L 1,000 ML IV SCH ×4 (04:56→22:09)
[2018-08-30 06:18] LABS: HEMOGLOBIN 14.5 G/DL (13.3-17.7); MEAN PLATELET VOLUME 10.2 FL (7.4-10.4); RED CELL DISTRIBUTION WIDTH 12.5 % (10.0-14.5); WHITE BLOOD COUNT 5.9 10^3/uL (4.3-11.0)
[2018-08-30 06:35] LABS: ALANINE AMINOTRANSFERASE 3128 U/L (0-55); ALKALINE PHOSPHATASE 80 U/L (40-136); BUN/CREATININE RATIO 4; CALCIUM 9.4 MG/DL (8.5-10.1); CARBON DIOXIDE 26 MMOL/L (21-32); CHLORIDE 107 MMOL/L (98-107); CREATININE SERUM 1.03 MG/DL (0.60-1.30); GFR ESTIMATED > 60; GLUCOSE 110 MG/DL (70-105); POTASSIUM 4.4 MMOL/L (3.6-5.0); SODIUM 141 MMOL/L (135-145); TOTAL PROTEIN 6.3 GM/DL (6.4-8.2)
[2018-08-30 08:00] VITALS: BP 133/78
[2018-08-30] MEDS: fentaNYL INJECTION 100 MCG/2 ML AMP IV PRN ×2 (08:51→16:53)
[2018-08-30] MEDS: FAMOTIDINE 20MG/2ML IV (PEPCID) IV SCH ×2 (08:51→22:08)
[2018-08-30 09:40] LABS: HEPATITIS C ANTIBODY C Non-Reactive (Non-Reactive)
[2018-08-30] MEDS ORDERED: POLYETHYLENE GLYCOL 17 GM (MIRALAX) PACK PO NR (12:00)
[2018-08-30] MEDS: IBUPROFEN 600 MG (MOTRIN) TAB PO SCH ×3 (12:32→23:51)
[2018-08-30 15:37] VITALS: BP 130/72
--- NOTE | 2018-08-30 16:09 | Progress Note (SOAP) ---
Subjective Subjective/Events-last exam Afebrile, no acute events. Still having a lot of pain and nausea. Tolerating some CLD. Review of Systems Date Seen by Provider: August 30, 2018 Time Seen by Provider: 11:30 Objective Exam Last Set of Vital Signs Vital Signs Date Time Temp Pulse Resp B/P (MAP) Pulse Ox O2 Delivery O2 Flow Rate FiO2 08/30/18 08:00 97.4 54 20 133/78 (96) 98 Room Air Capillary Refill : Less Than 3 Seconds I&O Intake and Output 08/30/18 00:00 Intake Total 2900 ml Balance 2900 ml Intake Oral 900 ml IV Total 2000 ml # Voids 7 Daily Weight Change Yes, 2-13 lbs General: Alert, No Acute Distress Lungs: Clear to Auscultation, Normal Air Movement Heart: Regular Rate, No Murmurs Abdomen: Normal Bowel Sounds, Soft, Other (ttp epigastric, RUQ and LLQ) Neuro: Normal Speech Psych/Mental Status: Mood NL Results/Procedures Lab Laboratory Tests 08/30/18 05:50: White Blood Count 5.9, Red Blood Count 4.88, Hemoglobin 14.5, Hematocrit 42, Mean Corpuscular Volume 87, Mean Corpuscular Hemoglobin 30, Mean Corpuscular Hemoglobin Concent 34, Red Cell Distribution Width 12.5, Platelet Count 185, Mean Platelet Volume 10.2, Sodium Level 141, Potassium Level 4.4, Chloride Level 107, Carbon Dioxide Level 26, Anion Gap 8, Blood Urea Nitrogen 4L, Creatinine 1.03, Estimat Glomerular Filtration Rate > 60, BUN/Creatinine Ratio 4 , Glucose Level 110H, Calcium Level 9.4, Corrected Calcium 9.4, Total Bilirubin 1.0, Aspartate Amino Transf (AST/SGOT) 841H, Alanine Aminotransferase (ALT/SGPT ) 3128#H, Alkaline Phosphatase 80, Total Protein 6.3L, Albumin 4.0 Radiology CXR 08/29 unremarkable KUB 08/29 nonspecific bowel gas pattern, stool throughout Assessment/Plan Assessment/Plan (1) Acute hepatitis Status: Acute Assessment & Plan: Unclear etiology, suspect viral. Hepatitis panel pending. GB US pending. Denies APAP use or persistent heavy EtOH use. 08/30 GB US unremarkable, enzymes trending down. Hep panel pending. Advance to regular diet, try oral pain meds and nausea meds. (2) Generalized abdominal pain Status: Acute Assessment & Plan: 08/30 Suspect some is related to stool in colon, will give miralax today (3) Nausea and vomiting Status: Acute Assessment & Plan: Antiemetics, CLD, advance as tolerated. Qualifiers: Qualified Codes: R11.2 - Nausea with vomiting, unspecified (4) DVT prophylaxis Status: Acute Assessment & Plan: Low risk, ambulate. Clinical Quality Measures DVT/VTE Risk/Contraindication: Risk Factor Score Per Nursin RFS Level Per Nursing on Admit: 1=Low/No VTE PPX J[place] BERNARDO MD August 30, 2018 16:09
[2018-08-30 23:53] VITALS: BP 134/72
[2018-08-31] MEDS: D5 1/2 NS W/KCL 20 MEQ/L 1,000 ML IV SCH ×2 (05:33→11:58)
[2018-08-31] MEDS: IBUPROFEN 600 MG (MOTRIN) TAB PO SCH ×2 (05:33→11:58)
[2018-08-31 06:21] LABS: HEMOGLOBIN 14.3 G/DL (13.3-17.7); MEAN PLATELET VOLUME 10.2 FL (7.4-10.4); RED CELL DISTRIBUTION WIDTH 12.5 % (10.0-14.5); WHITE BLOOD COUNT 6.2 10^3/uL (4.3-11.0)
[2018-08-31 06:41] LABS: ALANINE AMINOTRANSFERASE 2025 U/L (0-55); ALKALINE PHOSPHATASE 78 U/L (40-136); BILIRUBIN,TOTAL 0.8 MG/DL (0.1-1.0); BUN/CREATININE RATIO 5; CALCIUM 9.4 MG/DL (8.5-10.1); CARBON DIOXIDE 22 MMOL/L (21-32); CHLORIDE 109 MMOL/L (98-107); CREATININE SERUM 0.83 MG/DL (0.60-1.30); GFR ESTIMATED > 60; GLUCOSE 112 MG/DL (70-105); POTASSIUM 4.1 MMOL/L (3.6-5.0); SODIUM 141 MMOL/L (135-145); TOTAL PROTEIN 6.5 GM/DL (6.4-8.2)
[2018-08-31 08:00] VITALS: BP 136/85
[2018-08-31] MEDS: FAMOTIDINE 20MG/2ML IV (PEPCID) IV SCH (08:21)
[2018-08-31] MEDS ORDERED: IBUP-844 PO (08:27)
[2018-08-31] MEDS ORDERED: ONDA4TAB10 PO (08:27)
--- NOTE | 2018-08-31 10:54 | Discharge Instructions ---
Discharge [facility] Discharge Medications New, Converted or Re-Newed RX: Transmitted to Pharmacy New Medications: Ondansetron HCl (Ondansetron HCl) 4 Mg Tablet 4 MG PO Q4H PRN for NAUSEA/VOMITING-1ST LINE, #30 TAB 0 Refills Ibuprofen (Ibu) 600 Mg Tablet 600 MG PO Q6HR PRN for PAIN-MODERATE, #60 TAB 0 Refills Patient Instructions Goal/Follow Up Appt: Follow up with Danay Snider at [facility] in [place] on September 05 at 11 am. [facility]: Inability to keep down liquids Activity & Diet Discharge Diet: Eat Small Frequent Meals Activity as Tolerated: Yes Copy Copies To 1: AUDREY Stein BETHANY N MD August 31, 2018 08:30
--- NOTE | 2018-08-31 10:54 | Discharge Summary ---
Diagnosis/Chief Complaint Date of Admission Aug 29, 2018 at 04:26 Date of Discharge August 31, 2018 Admission Diagnosis Admission Diagnosis Acute hepatitis Abdominal pain Vomiting Discharge Diagnosis See discharge diagnosis Problems/Diagnosis: (1) Acute hepatitis Assessment & Plan: Unclear etiology, suspect viral. Hepatitis panel pending. GB US pending. Denies APAP use or persistent heavy EtOH use. 08/30 GB US unremarkable, enzymes trending down. Hep panel pending. Advance to regular diet, try oral pain meds and nausea meds. 08/31 Hepatitis panel neg, liver enzymes still trending down. Recommend repeat outpatient to confirm resolution. Status: Acute (2) Generalized abdominal pain Assessment & Plan: 08/30 Suspect some is related to stool in colon, will give miralax today Status: Acute (3) Nausea and vomiting Assessment & Plan: Antiemetics, CLD, advance as tolerated. Qualifiers: Qualified Codes: R11.2 - Nausea with vomiting, unspecified Status: Acute Chief Complaint/HPI Chief Complaint/HPI 18 yo male started having severe abdominal pain on Tuesday, was seen in ER and thought to have gastritis. He continued to have worsening LLQ and epigastric pain as well as vomiting to the point that he was getting very lightheaded and believes he passed out, although unwitnessed. He denies using any tylenol. He drinks occasionally (once per week or so, 10 beers at a time in general), last drink was 6 beers a few nights prior these issues. He admits to smoking THC about 2 weeks ago, denies any other substance use. Denies PMH or any OTC medications. Discharge Summary-Simple/Stand Consultations Discharge Physical Examination Allergies: Coded Allergies: No Known Drug Allergies (Unverified , 02/14/10) Vitals & I&Os Vital Sign - Last 12Hours Date Time Temp Pulse Resp B/P (MAP) Pulse Ox O2 Delivery O2 Flow Rate FiO2 08/31/18 08:00 97.0 67 20 136/85 (102) 99 Room Air Intake and Output 08/31/18 00:00 Intake Total 2810 ml Balance 2810 ml General Appearance: Alert, No Acute Distress Respiratory: Clear to Auscultation, Normal Air Movement Cardiovascular: Regular Rate, No Murmurs Abdominal: Normal Bowel Sounds, Soft, Other (mild ttp) Psych/Mental Status: Mental Status NL Hospital Course See final discharge diagnosis. Labs Laboratory Tests Test 08/30/18 05:50 08/31/18 05:31 Range/Units White Blood Count 5.9 6.2 4.3-11.0 10^3/uL Red Blood Count 4.88 4.87 4.35-5.85 10^6/uL Hemoglobin 14.5 14.3 13.3-17.7 G/DL Hematocrit 42 42 40-54 % Mean Corpuscular Volume 87 86 80-99 FL Mean Corpuscular Hemoglobin 30 29 25-34 PG Mean Corpuscular Hemoglobin Concent 34 34 32-36 G/DL Red Cell Distribution Width 12.5 12.5 10.0-14.5 % Platelet Count 185 201 130-400 10^3/uL Mean Platelet Volume 10.2 10.2 7.4-10.4 FL Sodium Level 141 141 135-145 MMOL/L Potassium Level 4.4 4.1 3.6-5.0 MMOL/L Chloride Level 107 109 H 98-107 MMOL/L Carbon Dioxide Level 26 22 21-32 MMOL/L Anion Gap 8 10 5-14 MMOL/L Blood Urea Nitrogen 4 L 4 L 7-18 MG/DL Creatinine 1.03 0.83 0.60-1.30 MG/DL Estimat Glomerular Filtration Rate > 60 > 60 BUN/Creatinine Ratio 4 5 Glucose Level 110 H 112 H 70-105 MG/DL Calcium Level 9.4 9.4 8.5-10.1 MG/DL Corrected Calcium 9.4 9.4 8.5-10.1 MG/DL Total Bilirubin 1.0 0.8 0.1-1.0 MG/DL Aspartate Amino Transf (AST/SGOT) 841 H 296 H 5-34 U/L Alanine Aminotransferase (ALT/SGPT) 3128 #H 2025 #H 0-55 U/L Alkaline Phosphatase 80 78 40-136 U/L Total Protein 6.3 L 6.5 6.4-8.2 GM/DL Albumin 4.0 4.0 3.2-4.5 GM/DL Radiology Reviewed CXR 08/29 unremarkable KUB 08/29 nonspecific bowel gas pattern, stool throughout Discharge Instructions to patient/family Please see electronic discharge instructions given to patient. Discharge Medications Reviewed and agree with Discharge Medication list on patient's Discharge Instruction sheet Clinical Quality Measures DVT/VTE Risk/Contraindication: Risk Factor Score Per Nursin RFS Level Per Nursing on Admit: 1=Low/No VTE PPX Copy Copies To 1: AUDREY Stein BETHANY N MD August 31, 2018 10:54
[2018-08-31 15:45] VITALS: BP 136/70
== END 2018-08-31 15:45 | disposition home or self-care (01) | DRG 443 ==
LOC: EDUNIT# 23:37 → ER 23:40 → 4TH 08-29 04:26
PROVIDERS: ADMIT Internal Medicine; ATTEND Family Medicine
DX: B17.9 Acute viral hepatitis, unspecified (principal); R11.2 Nausea with vomiting, unspecified; G43.909 Migraine, unspecified, not intractable, without status migrainosus; R10.84 Generalized abdominal pain
CPT/HCPCS: 36415; 71046; 74019; 76705; 80053; 80074; 80306; 80320; 81000; 83690; 83735; 85025; 85027; 86141; 96361; 96374; 96375

== ENCOUNTER → 2019-04-24 | Outpatient (CLI) | payer OTHER ==
[~2019-04-24] MED LIST changes: +IBUP-844 PO; +ONDA4TAB10 PO
[2019-04-24 13:33] LABS: BASOPHILS # (AUTO) 0.1 10^3/uL (0.0-0.1); BASOPHILS % (AUTO) 1 % (0-10); EOSINOPHILS # (AUTO) 0.2 10^3/uL (0.0-0.3); EOSINOPHILS % (AUTO) 3 % (0-10); HEMATOCRIT 46 % (40-54); HEMOGLOBIN 16.4 G/DL (13.3-17.7); LYMPHOCYTES # (AUTO) 1.5 X 10^3 (1.0-4.0); LYMPHOCYTES % (AUTO) 27 % (12-44); MEAN CORPUSCULAR HEMOGLOBIN 30 PG (25-34); MEAN CORPUSCULAR HGB CONC 35 G/DL (32-36); MEAN CORPUSCULAR VOLUME 83 FL (80-99); MEAN PLATELET VOLUME 10.6 FL (7.4-10.4); MONOCYTES # (AUTO) 0.7 X 10^3 (0.0-1.0); MONOCYTES % (AUTO) 12 % (0-12); NEUTROPHILS # (AUTO) 3.2 X 10^3 (1.8-7.8); NEUTROPHILS % (AUTO) 57 % (42-75); PLATELET COUNT 261 10^3/uL (130-400); RED CELL DISTRIBUTION WIDTH 12.4 % (10.0-14.5); WHITE BLOOD COUNT 5.7 10^3/uL (4.3-11.0)
[2019-04-24 13:49] LABS: ALANINE AMINOTRANSFERASE 30 U/L (0-55); ALBUMIN 5.1 GM/DL (3.2-4.5); ALKALINE PHOSPHATASE 80 U/L (40-136); AMYLASE 38 U/L (25-125); BILIRUBIN,TOTAL 0.8 MG/DL (0.1-1.0); BUN/CREATININE RATIO 7; CALCIUM 10.3 MG/DL (8.5-10.1); CARBON DIOXIDE 22 MMOL/L (21-32); CHLORIDE 108 MMOL/L (98-107); CREATINE KINASE 446 U/L (30-200); CREATININE SERUM 0.97 MG/DL (0.60-1.30); GFR ESTIMATED > 60; GLUCOSE 89 MG/DL (70-105); LIPASE 13 U/L (8-78); POTASSIUM 4.2 MMOL/L (3.6-5.0); SODIUM 141 MMOL/L (135-145); TOTAL PROTEIN 8.1 GM/DL (6.4-8.2)
[2019-04-24 13:55] LABS: BASOPHILS % (MANUAL) 1 %; EOSINOPHILS % (MANUAL) 3 %; LYMPHOCYTES % (MANUAL) 31 %; MONOCYTES % (MANUAL) 8 %; NEUTROPHILS % (MANUAL) 47 %; REACTIVE LYMPHOCYTES 10 %
[2019-04-24 14:03] LABS: ERYTHROCYTE SEDIMENTATION RATE 1 MM/HR (0-15); RBC MORPH NORMAL
== END ==
LOC: LAB 13:15
PROVIDERS: ATTEND Nurse Practitioner Family
DX: R10.12 Left upper quadrant pain (principal)
CPT/HCPCS: 36415; 80053; 82150; 82550; 83605; 83690; 85007; 85027; 85652

== ENCOUNTER → 2019-04-26 | Outpatient (CLI) | payer OTHER ==
[~2019-04-26] MED LIST changes: +CATHETER FLUSH 10 ML SYR IV PRN; +HOLD METFORMIN - RECEIVED CONTRAST 20 ML VIAL IV SCH; +IOHEXOL 350 MG/ML 100 ML (OMNIPAQUE 350) VIAL IV ONE; +NS 100 ML (IVPB) BAG IV ONE
--- NOTE | 2019-04-26 15:47 | Diagnostic Imaging Report ---
PROCEDURE: CT abdomen and pelvis with contrast. TECHNIQUE: Multiple contiguous axial images were obtained through the abdomen and pelvis after administration of intravenous contrast. Auto Exposure Controls were utilized during the CT exam to meet ALARA standards for radiation dose reduction. INDICATION: Left upper quadrant pain. COMPARISON: Comparison is made with prior CT from 08/27/2018. FINDINGS: The lung bases are clear. The liver demonstrates generalized low density consistent with hepatic steatosis. No discrete liver mass is detected. The gallbladder is unremarkable. No biliary ductal dilatation is seen. The pancreas and spleen are unremarkable. No adrenal mass is detected. Kidneys are unremarkable. No hydronephrosis is identified. Aorta is non-aneurysmal. Small and large bowel loops are normal caliber. There is no obstruction. No free fluid or fluid collection is identified. No inflammatory changes are detected. There are scattered lymph nodes within the mesentery and in right lower quadrant. These appear to be similar in size to prior CT. Unopacified bladder is unremarkable. Prostate and seminal vesicles are unremarkable. Bony structures demonstrate bilateral pars defects at L5-S1 level with very mild spondylolisthesis of L5 on S1. IMPRESSION: Stable CT of the abdomen and pelvis. No acute feature is identified. Dictated by: Dictated on workstation # [id number]
== END ==
LOC: RAD 14:40
PROVIDERS: ATTEND Nurse Practitioner Family
DX: R10.12 Left upper quadrant pain (principal)
CPT/HCPCS: 74177

== ENCOUNTER 2019-05-08 14:52 | Emergency (ER) | payer OTHER ==
[~2019-05-08] VITALS: Ht 180 cm; Wt 97.4 kg
[~2019-05-08 14:52] MED LIST changes: -CATHETER FLUSH 10 ML SYR IV PRN; -HOLD METFORMIN - RECEIVED CONTRAST 20 ML VIAL IV SCH; -IOHEXOL 350 MG/ML 100 ML (OMNIPAQUE 350) VIAL IV ONE; -NS 100 ML (IVPB) BAG IV ONE
[2019-05-08] MEDS ORDERED: NS IV 1000 ML 1,000 ML IV SCH (15:03)
[2019-05-08 15:38] LABS: BASOPHILS % (AUTO) 1 % (0-10); EOSINOPHILS # (AUTO) 0.1 10^3/uL (0.0-0.3); EOSINOPHILS % (AUTO) 2 % (0-10); HEMATOCRIT 43 % (40-54); HEMOGLOBIN 15.2 G/DL (13.3-17.7); LYMPHOCYTES # (AUTO) 0.9 X 10^3 (1.0-4.0); LYMPHOCYTES % (AUTO) 15 % (12-44); MEAN CORPUSCULAR HEMOGLOBIN 29 PG (25-34); MEAN CORPUSCULAR HGB CONC 35 G/DL (32-36); MEAN CORPUSCULAR VOLUME 83 FL (80-99); MEAN PLATELET VOLUME 10.3 FL (7.4-10.4); MONOCYTES # (AUTO) 0.5 X 10^3 (0.0-1.0); MONOCYTES % (AUTO) 9 % (0-12); NEUTROPHILS # (AUTO) 4.4 X 10^3 (1.8-7.8); NEUTROPHILS % (AUTO) 74 % (42-75); PLATELET COUNT 209 10^3/uL (130-400); RED CELL DISTRIBUTION WIDTH 12.1 % (10.0-14.5); WHITE BLOOD COUNT 5.9 10^3/uL (4.3-11.0)
[2019-05-08 15:59] LABS: ALANINE AMINOTRANSFERASE 21 U/L (0-55); ALBUMIN 4.7 GM/DL (3.2-4.5); ALKALINE PHOSPHATASE 75 U/L (40-136); AMYLASE 37 U/L (25-125); BILIRUBIN,TOTAL 0.8 MG/DL (0.1-1.0); BUN/CREATININE RATIO 7; CALCIUM 9.6 MG/DL (8.5-10.1); CARBON DIOXIDE 20 MMOL/L (21-32); CHLORIDE 106 MMOL/L (98-107); CREATININE SERUM 1.14 MG/DL (0.60-1.30); GFR ESTIMATED > 60; GLUCOSE 101 MG/DL (70-105); LIPASE 14 U/L (8-78); SODIUM 137 MMOL/L (135-145); TOTAL PROTEIN 7.5 GM/DL (6.4-8.2)
[2019-05-08] MEDS ORDERED: PANTOPRAZOLE 40 MG (PROTONIX) VIAL IV ONE (16:15)
[2019-05-08] MEDS ORDERED: ONDANSETRON 4 MG/2 ML (SDV) Z0FRAN IVP ONE (16:15)
--- NOTE | 2019-05-08 16:47 | ED GI ---
General Chief Complaint: Abdominal/GI Problems Stated Complaint: VOMITING BLOOD Nursing Triage Note: TO TRIAGE WITH COMPLAINTS OF VOMITING BLOOD THEN PASSING OUT APPX 30 MINS AGO. UNKNOWN IF HE HIT HIS HEAD. STATES SHE WAS SEEN HERE AFTER [facility] AND HAD A CT AND IT SHOWED A FATTY LIVER. ABD PAIN CONTINUES TODAY. STATES HE FEELS LIGHT HEADED. Sepsis Screen: No Definite Risk History of Present Illness Date Seen by Provider: May 08, 2019 Time Seen by Provider: 15:10 Initial Comments 18-year-old male presents for left upper quadrant pain that began approximately 30 minutes ago after vomiting. He's been having persistent abdominal symptoms for the last week, he was seen by his PCP and started on Carafate. He is scheduled to see a specialist in [facility] next month. He denies any previous abdominal surgeries. He has no diarrhea. He currently denies nausea. Timing/Duration: 1-3 Hours Severity/Quality: Mild Location: [facility] Radiation: No Radiation Associated Symptoms: Nausea/Vomiting Allergies and Home Medications Allergies Coded Allergies: No Known Drug Allergies (Unverified , 02/14/10) Home Medications Ibuprofen 600 Mg Tablet, 600 MG PO Q6HR PRN for PAIN-MODERATE Prescribed by: JAMAICA BERNARDO on 08/31/18826 Ondansetron HCl 4 Mg Tablet, 4 MG PO Q4H PRN for NAUSEA/VOMITING-1ST LINE Prescribed by: JAMAICA BERNARDO on 08/31/18826 Patient Home Medication List Home Medication List Reviewed: Yes Review of Systems Review of Systems Constitutional: no symptoms reported, see HPI Gastrointestinal: See HPI, Abdominal Pain, Nausea, Vomiting All Other Systems Reviewed Negative Unless Noted: Yes Past Yksqloo-Kkmmft-Inzyov Hx Past Med/Social Hx: Reviewed Nursing Past Med/Soc Hx Patient Social History Alcohol Use: Regular Use Alcohol Beverage of Choice: Wine Recreational Drug Use: No Drug of Choice: MARIJUANA Smoking Status: Current Someday Smoker 2nd Hand Smoke Exposure: No Recent Foreign Travel: No Contact w/Someone Who Travel: No Recent Infectious Disease Expo: No Recent Hopitalizations: No Immunizations Up To Date PED Vaccines UTD: Yes Seasonal Allergies Seasonal Allergies: No Past Medical History Surgeries: Yes (R KNEE) Orthopedic Respiratory: No Cardiac: No Neurological: Yes (MULTIPLE CONCUSSIONS) Concussion, Headaches /Migraines Reproductive Disorders: No Sexually Transmitted Disease: No Genitourinary: No Gastrointestinal: Yes Hepatitis Musculoskeletal: No Endocrine: No HEENT: No Cancer: No Psychosocial: No Integumentary: No Blood Disorders: No Family Medical History No Pertinent Family Hx Physical Exam Vital Signs Vital Signs - First Documented 05/08/19 14:59 Temp 36.5 Pulse 90 Resp 16 B/P (MAP) 143/88 (106) Pulse Ox 96 O2 Delivery Room Air Capillary Refill : Less Than 3 Seconds Height/Weight/BMI Height: 5'11.00" Weight: 219lbs. oz. 99.552017ma; 30.00 BMI Method:Stated General Appearance: WD/WN, no apparent distress HEENT: PERRL/EOMI, normal ENT inspection, TMs normal, pharynx normal Neck: non-tender, full range of motion, supple, normal inspection Respiratory: chest non-tender, lungs clear, normal breath sounds Cardiovascular: normal peripheral pulses, regular rate, rhythm, no murmur Gastrointestinal: normal bowel sounds, soft; No distended, No guarding, No rebound; tenderness (trace, left upper quadrant most significant.); No mass Neurologic/Psychiatric: no motor/sensory deficits, alert, normal mood/affect, oriented x 3 Skin: normal color, warm/dry Lymphatic: no adenopathy Focused Exam Lactate Level 05/08/19 15:30: Lactic Acid Level 0.66 Lactic Acid Level Laboratory Tests Test 05/08/19 15:30 Lactic Acid Level 0.66 MMOL/L (0.50-2.00) Progress/Results/Core Measures Results/Orders Lab Results Laboratory Tests Test 05/08/19 15:30 05/08/19 16:50 Range/Units White Blood Count 5.9 4.3-11.0 10^3/uL Red Blood Count 5.19 4.35-5.85 10^6/uL Hemoglobin 15.2 13.3-17.7 G/DL Hematocrit 43 40-54 % Mean Corpuscular Volume 83 80-99 FL Mean Corpuscular Hemoglobin 29 25-34 PG Mean Corpuscular Hemoglobin Concent 35 32-36 G/DL Red Cell Distribution Width 12.1 10.0-14.5 % Platelet Count 209 130-400 10^3/uL Mean Platelet Volume 10.3 7.4-10.4 FL Neutrophils (%) (Auto) 74 42-75 % Lymphocytes (%) (Auto) 15 12-44 % Monocytes (%) (Auto) 9 0-12 % Eosinophils (%) (Auto) 2 0-10 % Basophils (%) (Auto) 1 0-10 % Neutrophils # (Auto) 4.4 1.8-7.8 X 10^3 Lymphocytes # (Auto) 0.9 L 1.0-4.0 X 10^3 Monocytes # (Auto) 0.5 0.0-1.0 X 10^3 Eosinophils # (Auto) 0.1 0.0-0.3 10^3/uL Basophils # (Auto) 0.0 0.0-0.1 10^3/uL Sodium Level 137 135-145 MMOL/L Potassium Level 4.0 3.6-5.0 MMOL/L Chloride Level 106 98-107 MMOL/L Carbon Dioxide Level 20 L 21-32 MMOL/L Anion Gap 11 5-14 MMOL/L Blood Urea Nitrogen 8 7-18 MG/DL Creatinine 1.14 0.60-1.30 MG/DL Estimat Glomerular Filtration Rate > 60 BUN/Creatinine Ratio 7 Glucose Level 101 70-105 MG/DL Lactic Acid Level 0.66 0.50-2.00 MMOL/L Calcium Level 9.6 8.5-10.1 MG/DL Corrected Calcium 8.5-10.1 MG/DL Total Bilirubin 0.8 0.1-1.0 MG/DL Aspartate Amino Transf (AST/SGOT) 20 5-34 U/L Alanine Aminotransferase (ALT/SGPT) 21 0-55 U/L Alkaline Phosphatase 75 40-136 U/L Total Protein 7.5 6.4-8.2 GM/DL Albumin 4.7 H 3.2-4.5 GM/DL Amylase Level 37 25-125 U/L Lipase 14 8-78 U/L Serum Alcohol < 10 <10 MG/DL Urine Color YELLOW Urine Clarity SL CLOUDY Urine pH 8.5 5-9 Urine Specific Osborn 1.020 1.016-1.022 Urine Protein NEGATIVE NEGATIVE Urine Glucose (UA) NEGATIVE NEGATIVE Urine Ketones NEGATIVE NEGATIVE Urine Nitrite NEGATIVE NEGATIVE Urine Bilirubin NEGATIVE NEGATIVE Urine Urobilinogen 1.0 < = 1.0 MG/DL Urine Leukocyte Esterase NEGATIVE NEGATIVE Urine RBC (Auto) NEGATIVE NEGATIVE Urine RBC NONE /HPF Urine WBC NONE /HPF Urine Squamous Epithelial Cells RARE /HPF Urine Crystals NONE /LPF Urine Bacteria TRACE /HPF Urine Casts NONE /LPF Urine Mucus NEGATIVE /LPF Urine Culture Indicated NO Urine Opiates Screen NEGATIVE NEGATIVE Urine Oxycodone Screen NEGATIVE NEGATIVE Urine Methadone Screen NEGATIVE NEGATIVE Urine Propoxyphene Screen NEGATIVE NEGATIVE Urine Barbiturates Screen NEGATIVE NEGATIVE Ur Tricyclic Antidepressants Screen NEGATIVE NEGATIVE Urine Phencyclidine Screen NEGATIVE NEGATIVE Urine Amphetamines Screen NEGATIVE NEGATIVE Urine Methamphetamines Screen NEGATIVE NEGATIVE Urine Benzodiazepines Screen NEGATIVE NEGATIVE Urine Cocaine Screen NEGATIVE NEGATIVE Urine Cannabinoids Screen POSITIVE H NEGATIVE My Orders Orders - TERRA,MENDEL WINDOW MACHINE OPERATOR Amylase (05/08/19 15:03) Cbc With Automated Diff (05/08/19 15:03) Comprehensive Metabolic Panel (05/08/19 15:03) Lactic Acid Analyzer (05/08/19 15:03) Lipase (05/08/19 15:03) Ua Culture If Indicated (05/08/19 15:03) Ed Iv/Invasive Line Start (05/08/19 15:03) Ns Iv 1000 Ml (Sodium Chloride 0.9%) (05/08/19 15:03) Alcohol (05/08/19 15:06) Drug Screen Stat (Urine) (05/08/19 15:06) Ondansetron Injection (Zofran Injectio (05/08/19 16:15) Pantoprazole Injection (Protonix Injecti (05/08/19 16:15) Medications Given in ED Current Medications Medications Dose Ordered Sig/Maryana Route Start Time Stop Time Status Last Admin Dose Admin Ondansetron HCl 4 mg ONCE ONCE IVP 05/08/19 16:15 05/08/19 16:16 DC 05/08/19 16:20 4 MG Pantoprazole 40 mg ONCE ONCE IV 05/08/19 16:15 05/08/19 16:16 DC 05/08/19 16:20 40 MG Vital Signs/I&O 05/08/19 05/08/19 14:59 18:08 Temp 36.5 Pulse 90 66 Resp 16 18 B/P (MAP) 143/88 (106) 152/87 Pulse Ox 96 99 O2 Delivery Room Air Room Air Blood Pressure Mean: 106 Progress Progress Note : Time: 15:10 Progress Note Patient seen and evaluated, will obtain labs and normal saline 1 L per IV. Patient's parents concerned because of CT results from last week they were told that he has significant lymph node enlargement. Reviewed the CT scan and ordered which did not show this, provided patient with copy of CT results. 1600 patient reports trace improvement in symptoms, will give Protonix 40 mg IV. 1700 labs all within normal limits. Discussed with the patient and his parents. 1730 discharge instructions and return precautions reviewed with patient. All questions answered. Departure Impression Primary Impression: Pain in the abdomen Qualified Codes: R10.84 - Generalized abdominal pain Disposition: HOME, SELF-CARE Condition: Improved Departure-Patient Inst. Decision time for Depature: 17:30 Referrals: [facility] (PCP) Primary Care Physician JEREMY MCADAMS APRN (Family) Primary Care Physician Patient Instructions: Acute Abdomen (Belly Pain), Adult (DC), Peptic Ulcers (DC) Add. Discharge Instructions: Clear liquid diet for the next 6-8 hours, then bland diet as tolerated. Avoid any marijuana, as it can cause nausea and vomiting to be worse. You have a follow-up appointment at [facility] in [place] May 11 at 4:00 PM, You've been scheduled to see a GI specialist in [facility] on June 12 at 9:30 AM, they will discuss this at your Fri. Continue to take the medications that you have been prescribed. Add Pepcid 10 mg twice daily, over the counter. Avoid fried foods, greasy foods, spicy foods, and limit dairy intake. Return to the emergency department for new, urgent health care needs. All discharge instructions reviewed with patient and/or family. Voiced underst anding. MENDEL ELLISON May 08, 2019 16:47
[2019-05-08 16:56] LABS: BILIRUBIN,URINE NEGATIVE (NEGATIVE); CLARITY,URINE SL CLOUDY; COLOR,URINE YELLOW; GLUCOSE, URINE (UA) NEGATIVE (NEGATIVE); KETONES,URINE NEGATIVE (NEGATIVE); LEUKOCYTE ESTERASE ,URINE NEGATIVE (NEGATIVE); NITRITE,URINE NEGATIVE (NEGATIVE); PH,URINE 8.5 (5-9); PROTEIN,URINE NEGATIVE (NEGATIVE)
[2019-05-08 17:05] LABS: BACTERIA,URINE TRACE /HPF; SQUAMOUS EPITHELIAL CELL,UR RARE /HPF
[2019-05-08 17:09] LABS: AMPHETAMINE SCREEN, URINE NEGATIVE (NEGATIVE); BARBITURATE SCREEN URINE NEGATIVE (NEGATIVE); BENZODIAZEPINES SCREEN URINE NEGATIVE (NEGATIVE); CANNABINOID SCREEN, URINE POSITIVE (NEGATIVE); COCAINE SCREEN URINE NEGATIVE (NEGATIVE); METHADONE STAT NEGATIVE (NEGATIVE); METHAMPHETAMINE SCREEN URINE S NEGATIVE (NEGATIVE); OPIATE SCREEN URINE NEGATIVE (NEGATIVE); OXYCODONE STAT NEGATIVE (NEGATIVE); PROPOXYPHENE STAT NEGATIVE (NEGATIVE); TRICYCLIC ANTIDEPRESSANTS SCRE NEGATIVE (NEGATIVE)
[2019-05-08 18:08] VITALS: BP 152/87
[2019-05-13] MEDS ORDERED: FLUO20CA25 PO (02:59)
== END 2019-05-08 18:07 | disposition home or self-care (01) ==
LOC: EDUNIT# 14:52 → ER 14:53
DX: R10.12 Left upper quadrant pain (principal); G43.909 Migraine, unspecified, not intractable, without status migrainosus; F17.200 Nicotine dependence, unspecified, uncomplicated; Z87.820 Personal history of traumatic brain injury
CPT/HCPCS: 36415; 80053; 80306; 80320; 81000; 82150; 83605; 83690; 85025; 96361; 96374; 96375

== ENCOUNTER 2019-05-12 17:50 | Observation (INO) | payer OTHER ==
[~2019-05-12] VITALS: Ht 180.3 cm; Wt 95.5 kg
--- NOTE | 2019-05-12 18:26 | ED General ---
General Chief Complaint: Overdose Stated Complaint: OVERDOSE Nursing Triage Note: PT AMBULATE TO TRIAGE WITH C/O OVERDOSE OF BUPROPIAN AT 1700 TODAY. PT STATES HE CALLED POISON CONTROL APPROX 45 MIN AFTER INGESTION. PT STATES HE WAS TRYING TO KILL SELF AND THEN STATES "I DON'T KNOW" WHEN ASKED AGAIN. Nursing Sepsis Screen: No Definite Risk Source of Information: Patient Exam Limitations: No Limitations History of Present Illness Date Seen by Provider: May 12, 2019 Time Seen by Provider: 18:24 Initial Comments 18-year-old male presents with a Wellbutrin overdose. Patient reports he took 15 of is 150 mg Wellbutrin's around 5 PM today. When asked why patient states he doesn't know, last rabies try to hurt himself he states he doesn't know, when asked if he was trying to get high states he doesn't know. Patient states he doesn't know if he has any symptoms. Patient will not provide any other information besides "he doesn't know" patient reports he came to the ER because he called poison control and they told him to come here for further evaluation. Patient denies any other drug or alcohol use. No other history of present illness available Allergies and Home Medications Allergies Coded Allergies: No Known Drug Allergies (Unverified , 02/14/10) Home Medications Ibuprofen 600 Mg Tablet, 600 MG PO Q6HR PRN for PAIN-MODERATE Prescribed by: JAMAICA BERNARDO on 08/31/18826 Ondansetron HCl 4 Mg Tablet, 4 MG PO Q4H PRN for NAUSEA/VOMITING-1ST LINE Prescribed by: JAMAICA BERNARDO on 08/31/18826 Patient Home Medication List Home Medication List Reviewed: Yes Review of Systems Review of Systems Constitutional: No chills, No fever EENTM: no symptoms reported Respiratory: no symptoms reported Cardiovascular: no symptoms reported Gastrointestinal: no symptoms reported Genitourinary: no symptoms reported Musculoskeletal: no symptoms reported Skin: no symptoms reported Psychiatric/Neurological: No Symptoms Reported Hematologic/Lymphatic: No Symptoms Reported Past Pkavmjx-Pgzlsl-Vmlvpd Hx Past Med/Social Hx: Reviewed Nursing Past Med/Soc Hx Patient Social History Alcohol Use: Regular Use Number of Drinks Today: Alcohol Beverage of Choice: Wine Recreational Drug Use: Yes Drug of Choice: MARIJUANA Smoking Status: Current Everyday Smoker Type Used: Cigars 2nd Hand Smoke Exposure: No Recent Foreign Travel: No Contact w/Someone Who Travel: No Recent Infectious Disease Expo: No Recent Hopitalizations: No Physical Abuse: No Sexual Abuse: No Mistreated: No Fear: No Immunizations Up To Date PED Vaccines UTD: Yes Seasonal Allergies Seasonal Allergies: No Past Medical History Surgeries: Yes (R KNEE) Orthopedic Respiratory: No Cardiac: No Neurological: Yes (MULTIPLE CONCUSSIONS) Concussion, Headaches /Migraines Reproductive Disorders: No Sexually Transmitted Disease: No Genitourinary: No Gastrointestinal: Yes Hepatitis Musculoskeletal: No Endocrine: No HEENT: No Cancer: No Psychosocial: No Integumentary: No Blood Disorders: No Family Medical History No Pertinent Family Hx Physical Exam Vital Signs Vital Signs - First Documented 05/12/19 05/12/19 18:04 20:40 Temp 36.7 Pulse 89 Resp 18 B/P (MAP) 137/94 (108) Pulse Ox 96 O2 Delivery Room Air Capillary Refill : Less Than 3 Seconds Height, Weight, BMI Height: 5'11.00" Weight: 219lbs. oz. 99.600580vy; 29.00 BMI Method:Stated General Appearance: No Apparent Distress, WD/WN HEENT: PERRL/EOMI, TMs Normal Neck: Non Tender, Supple Respiratory: Chest Non Tender, Lungs Clear, Normal Breath Sounds Cardiovascular: Regular Rate, Rhythm Gastrointestinal: Non Tender, Soft Extremity: Normal Capillary Refill Neurologic/Psychiatric: Alert, Oriented x3 Skin: Normal Color, Warm/Dry Progress/Results/Core Measures Suspected Sepsis Recent Fever Within 48 Hours: No Infection Criteria Present: None New/Unexplained Altered Menta: No Sepsis Screen: No Definite Risk SIRS Temperature: Pulse: 89 Respiratory Rate: 18 Laboratory Tests 05/12/19 18:52: White Blood Count 6.5 Blood Pressure 137 /94 Mean: 108 Laboratory Tests 05/12/19 18:52: Creatinine 1.23, Platelet Count 257, Total Bilirubin 0.6 Results/Orders Lab Results Laboratory Tests Test 05/12/19 18:45 05/12/19 18:52 Range/Units Urine Color YELLOW Urine Clarity CLEAR Urine pH 6.0 5-9 Urine Specific [place] 1.010 L 1.016-1.022 Urine Protein NEGATIVE NEGATIVE Urine Glucose (UA) NEGATIVE NEGATIVE Urine Ketones NEGATIVE NEGATIVE Urine Nitrite NEGATIVE NEGATIVE Urine Bilirubin NEGATIVE NEGATIVE Urine Urobilinogen 0.2 < = 1.0 MG/DL Urine Leukocyte Esterase NEGATIVE NEGATIVE Urine RBC (Auto) NEGATIVE NEGATIVE Urine RBC NONE /HPF Urine WBC NONE /HPF Urine Crystals NONE /LPF Urine Bacteria NEGATIVE /HPF Urine Casts NONE /LPF Urine Mucus NEGATIVE /LPF Urine Culture Indicated NO Urine Opiates Screen NEGATIVE NEGATIVE Urine Oxycodone Screen NEGATIVE NEGATIVE Urine Methadone Screen NEGATIVE NEGATIVE Urine Propoxyphene Screen NEGATIVE NEGATIVE Urine Barbiturates Screen NEGATIVE NEGATIVE Ur Tricyclic Antidepressants Screen NEGATIVE NEGATIVE Urine Phencyclidine Screen NEGATIVE NEGATIVE Urine Amphetamines Screen NEGATIVE NEGATIVE Urine Methamphetamines Screen NEGATIVE NEGATIVE Urine Benzodiazepines Screen NEGATIVE NEGATIVE Urine Cocaine Screen NEGATIVE NEGATIVE Urine Cannabinoids Screen POSITIVE H NEGATIVE White Blood Count 6.5 4.3-11.0 10^3/uL Red Blood Count 5.78 4.35-5.85 10^6/uL Hemoglobin 16.8 13.3-17.7 G/DL Hematocrit 47 40-54 % Mean Corpuscular Volume 82 80-99 FL Mean Corpuscular Hemoglobin 29 25-34 PG Mean Corpuscular Hemoglobin Concent 35 32-36 G/DL Red Cell Distribution Width 12.8 10.0-14.5 % Platelet Count 257 130-400 10^3/uL Mean Platelet Volume 10.4 7.4-10.4 FL Neutrophils (%) (Auto) 68 42-75 % Lymphocytes (%) (Auto) 16 12-44 % Monocytes (%) (Auto) 13 H 0-12 % Eosinophils (%) (Auto) 2 0-10 % Basophils (%) (Auto) 1 0-10 % Neutrophils # (Auto) 4.4 1.8-7.8 X 10^3 Lymphocytes # (Auto) 1.0 1.0-4.0 X 10^3 Monocytes # (Auto) 0.9 0.0-1.0 X 10^3 Eosinophils # (Auto) 0.1 0.0-0.3 10^3/uL Basophils # (Auto) 0.1 0.0-0.1 10^3/uL Sodium Level 139 135-145 MMOL/L Potassium Level 4.2 3.6-5.0 MMOL/L Chloride Level 102 98-107 MMOL/L Carbon Dioxide Level 22 21-32 MMOL/L Anion Gap 15 H 5-14 MMOL/L Blood Urea Nitrogen 7 7-18 MG/DL Creatinine 1.23 0.60-1.30 MG/DL Estimat Glomerular Filtration Rate > 60 BUN/Creatinine Ratio 6 Glucose Level 96 70-105 MG/DL Calcium Level 10.4 H 8.5-10.1 MG/DL Corrected Calcium 8.5-10.1 MG/DL Total Bilirubin 0.6 0.1-1.0 MG/DL Aspartate Amino Transf (AST/SGOT) 22 5-34 U/L Alanine Aminotransferase (ALT/SGPT) 24 0-55 U/L Alkaline Phosphatase 77 40-136 U/L Total Protein 8.4 H 6.4-8.2 GM/DL Albumin 5.2 H 3.2-4.5 GM/DL Salicylates Level < 5.0 L 5.0-20.0 MG/DL Acetaminophen Level < 10 L 10-30 UG/ML Serum Alcohol < 10 <10 MG/DL My Orders Orders - RUBIO,JAMAL L DO Ua Culture If Indicated (05/12/19 18:27) Cbc With Automated Diff (05/12/19 18:27) Comprehensive Metabolic Panel (05/12/19 18:27) Alcohol (05/12/19 18:27) Drug Screen Stat (Urine) (05/12/19 18:27) Acetaminophen (05/12/19 18:27) Salicylate (05/12/19 18:27) Ekg Tracing (05/12/19 18:27) Ekg Tracing (05/12/19 19:48) Vital Signs/I&O 05/12/19 05/12/19 05/12/19 05/12/19 18:04 20:40 21:00 21:16 Temp 36.7 37.0 Pulse 89 96 112 Resp 18 20 16 B/P (MAP) 137/94 (108) 145/94 144/80 Pulse Ox 96 99 99 O2 Delivery Room Air Room Air Room Air Room Air 05/12/19 05/12/19 05/12/19 21:20 22:27 23:13 Temp 37.0 37.0 Pulse 112 120 129 Resp 16 20 B/P (MAP) 144/89 (107) 130/89 (103) Pulse Ox 99 99 O2 Delivery Room Air Room Air Capillary Refill : Less Than 3 Seconds Blood Pressure Mean: 108 Progress Note : Time: 19:58 Progress Note Discussed case with poison control. They recommend patient observed for 24 hours with telemetry and EKGs. Patient at potential risk for seizures due to that indicated amount of overdose. This time patient continues to deny suicidal ideations so a behavioral health screening will not be obtained. Patient with no symptoms or signs of acute ingestion while in the ER ECG Initial ECG Impression Date: May 12, 2019 Initial ECG Impression Time: 18:38 Initial ECG Rate: 74 Initial ECG Rhythm: Normal Sinus Initial ECG Intervals: Normal Initial ECG Impression: Normal EKG : EKG Time: 18:38 Rhythm: Normal Sinus Intervals: Normal ECG Impression: Normal Departure Communication (Admissions) Time/Spoke to Admitting Phy: 19:[address] patient in observation as recommended by poison control on telemetry with repeat EKG in the a.m. Impression Primary Impression: Drug overdose Qualified Codes: T50.904A - Poisoning by unspecified drugs, medicaments and biological substances, undetermined, initial encounter Disposition: ADMITTED INPATIENT Condition: Stable Admissions Decision to Admit Reason: Admit from ER (General) Decision to Admit/Date: May 12, 2019 Time/Decision to Admit Time: 19:50 Departure-Patient Inst. Referrals: [facility] (PCP) Primary Care Physician JEREMY MCADAMS APRN (Family) Primary Care Physician Patient Instructions: ALCOHOL AND SUBSTANCE ABUSE JAMAL RUBIO DO May 12, 2019 18:26
[2019-05-12 18:53] LABS: BILIRUBIN,URINE NEGATIVE (NEGATIVE); CLARITY,URINE CLEAR; COLOR,URINE YELLOW; GLUCOSE, URINE (UA) NEGATIVE (NEGATIVE); KETONES,URINE NEGATIVE (NEGATIVE); LEUKOCYTE ESTERASE ,URINE NEGATIVE (NEGATIVE); NITRITE,URINE NEGATIVE (NEGATIVE); PROTEIN,URINE NEGATIVE (NEGATIVE)
[2019-05-12 19:00] LABS: BASOPHILS # (AUTO) 0.1 10^3/uL (0.0-0.1); BASOPHILS % (AUTO) 1 % (0-10); EOSINOPHILS # (AUTO) 0.1 10^3/uL (0.0-0.3); EOSINOPHILS % (AUTO) 2 % (0-10); HEMATOCRIT 47 % (40-54); HEMOGLOBIN 16.8 G/DL (13.3-17.7); LYMPHOCYTES % (AUTO) 16 % (12-44); MEAN CORPUSCULAR HEMOGLOBIN 29 PG (25-34); MEAN CORPUSCULAR HGB CONC 35 G/DL (32-36); MEAN CORPUSCULAR VOLUME 82 FL (80-99); MEAN PLATELET VOLUME 10.4 FL (7.4-10.4); MONOCYTES # (AUTO) 0.9 X 10^3 (0.0-1.0); MONOCYTES % (AUTO) 13 % (0-12); NEUTROPHILS # (AUTO) 4.4 X 10^3 (1.8-7.8); NEUTROPHILS % (AUTO) 68 % (42-75); PLATELET COUNT 257 10^3/uL (130-400); RED CELL DISTRIBUTION WIDTH 12.8 % (10.0-14.5); WHITE BLOOD COUNT 6.5 10^3/uL (4.3-11.0)
[2019-05-12 19:10] LABS: AMPHETAMINE SCREEN, URINE NEGATIVE (NEGATIVE); BARBITURATE SCREEN URINE NEGATIVE (NEGATIVE); BENZODIAZEPINES SCREEN URINE NEGATIVE (NEGATIVE); CANNABINOID SCREEN, URINE POSITIVE (NEGATIVE); COCAINE SCREEN URINE NEGATIVE (NEGATIVE); METHADONE STAT NEGATIVE (NEGATIVE); METHAMPHETAMINE SCREEN URINE S NEGATIVE (NEGATIVE); OPIATE SCREEN URINE NEGATIVE (NEGATIVE); OXYCODONE STAT NEGATIVE (NEGATIVE); PROPOXYPHENE STAT NEGATIVE (NEGATIVE); TRICYCLIC ANTIDEPRESSANTS SCRE NEGATIVE (NEGATIVE)
--- NOTE | 2019-05-12 19:11 | NUR ---
CARE ASSUMED OF PT AT THIS TIME. THIS RN ASKED PT IF HE WAS ATTEMPTING TO HARM HIMSELF. PT REPORTED "I DON'T KNOW WHAT I WAS TRYING TO ACCOMPLISH." WHEN ASKED HOW MANY HE TOOK, PT STATED HE TOOK "15 OF HIS BUPROPRIAN". PT RESTING QUIETLY, ACTING APPROPRIATELY AT THIS TIME. NO OTHER C/O VOICED TO THIS RN.
[2019-05-12 19:12] LABS: BACTERIA,URINE NEGATIVE /HPF
[2019-05-12 19:21] LABS: ALANINE AMINOTRANSFERASE 24 U/L (0-55); ALBUMIN 5.2 GM/DL (3.2-4.5); ALKALINE PHOSPHATASE 77 U/L (40-136); BILIRUBIN,TOTAL 0.6 MG/DL (0.1-1.0); BUN/CREATININE RATIO 6; CALCIUM 10.4 MG/DL (8.5-10.1); CARBON DIOXIDE 22 MMOL/L (21-32); CHLORIDE 102 MMOL/L (98-107); CREATININE SERUM 1.23 MG/DL (0.60-1.30); GFR ESTIMATED > 60; GLUCOSE 96 MG/DL (70-105); POTASSIUM 4.2 MMOL/L (3.6-5.0); SALICYLATE < 5.0 MG/DL (5.0-20.0); SODIUM 139 MMOL/L (135-145); TOTAL PROTEIN 8.4 GM/DL (6.4-8.2)
[2019-05-12 19:38] LABS: ACETAMINOPHEN < 10 UG/ML (10-30)
--- NOTE | 2019-05-12 21:00 | NUR ---
RUPERT PIMENTEL admitted to room 428-1, with an admitting diagnosis of OVERDOSE, on 05/12/19 from ER via , accompanied by ER STAFF AND FATHER. RUPERT PIMENTEL introduced to surroundings, call light, bed controls, phone, TV, temperature control, lights, meal times, smoking policy, visitor policy, side rail policy, bathrooms and showers. Patient Rights given to patient in the handbook. RUPERT PIMENTEL verbalizes understanding that [facility] is not responsible for the loss or damage to any personal effects or valuables that are kept in the patients possession during their hospitalization.
[2019-05-12 21:16] VITALS: BP 144/80
[2019-05-12 21:20] VITALS: BP 144/89
[2019-05-12 23:13] VITALS: BP 130/89
--- NOTE | 2019-05-13 01:39 | NUR ---
Dr. Castellano notified of HR 135-138, feels short of air (sats are 99%); BP is 133/82; pt states when he closes his eyes his left leg feels numb; pupils are very dilated, but reactive and pt reports having difficulty focusing. New order rec for Ativan 1-2mg PO q 30 minutes PRN for agitation/tachycardia.
[2019-05-13] MEDS ORDERED: LORazepam 1 MG (ATIVAN) TAB ONE (01:42)
[2019-05-13] MEDS ORDERED: LORazepam 0.5 MG (ATIVAN) TABLET PO PRN (01:45)
[2019-05-13] MEDS ORDERED: SUCR1TAB PO (02:59)
[2019-05-13] MEDS ORDERED: FLUO20CA45 PO (02:59)
[2019-05-13] MEDS ORDERED: VENL-48 PO (02:59)
[2019-05-13] MEDS ORDERED: BUPR150T7 PO (02:59)
[2019-05-13 03:23] VITALS: BP 138/84
[2019-05-13] MEDS: LORazepam INJ 2 MG/ML (ATIVAN) VIAL IVP PRN ×3 (04:38→12:59)
--- NOTE | 2019-05-13 06:00 | NUR ---
Dr. Castellano notified of Poison Control's recommendation to start IVF's. New order rec for NS at 100 mls/hr.
[2019-05-13] MEDS ORDERED: NS IV 1000 ML 1,000 ML ONE (06:07)
[2019-05-13] MEDS ORDERED: NS IV 1000 ML 1,000 ML IV SCH (06:15)
[2019-05-13] MEDS ORDERED: FLU QUADRIvalent (5+ YOA) 2019-2020 (AFLURIA) 0.5 ML IM ONE (06:45)
--- NOTE | 2019-05-13 07:35 | NUR ---
Dr. Castellano notified of pt's complaints of nausea. New order rec for Zofran 8mg IV q 6 hrs prn.
[2019-05-13] MEDS ORDERED: ONDANSETRON 4 MG/2 ML (SDV) Z0FRAN IVP PRN (07:45)
[2019-05-13 08:10] VITALS: BP 160/85
--- NOTE | 2019-05-13 12:05 | Short Stay Summary-Hospitalist ---
History of Present Illness HPI/Chief Complaint CC: Wellbutrin OD? HPI: This is a 18yoWM clinic patient of [facility] w/h/o depression who presented to the ER and stated he had taken 15 pills of his Wellbutrin XL 150mg and needed to be monitored closely for complications. He denied suicide ideation and unsure why he did this. It is questionable whether or not he actually took the meds as he stated and has had no issues since admit but we did provide Ativan for anxiety likely not related to excess med consumption. When I saw him he was in his bed with his girlfriend and appears to be ready for DC. Source: patient Exam Limitations: no limitations Date Seen 05/13/19 Time Seen by a Provider: 11:00 Attending Physician Ramona Castellano DO [facility] Referring Physician Date of Admission May 12, 2019 at 19:51 Home Medications & Allergies Home Medications Reviewed patient Home Medication Reconciliation performed by pharmacy medication reconciliations health care technician and/or nursing. Patients Allergies have been reviewed. Allergies Allergies Coded Allergies No Known Drug Allergies ([id number]/16/10) Past Zhojfkh-Jjydsb-Mdiuax Hx Past Med/Social Hx: Reviewed Nursing Past Med/Soc Hx, Reviewed and Corrections made Patient Social History Marrital Status: single Employed/Student: unemployed Alcohol Use: Regular Use Number of Drinks Today: Alcohol Beverage of Choice: Wine Recreational Drug Use: Yes Drug of Choice: MARIJUANA Smoking Status: Current Everyday Smoker Type Used: Cigars 2nd Hand Smoke Exposure: No Recent Foreign Travel: No Contact w/other who traveled: No Recent Hopitalizations: No Recent Infectious Disease Expo: No Immunizations Up To Date Pediatric: Yes Seasonal Allergies Seasonal Allergies: No Past Medical History Surgeries: Orthopedic Neurological: Concussion, Headaches /Migraines Reproductive: No Sexually Transmitted Disease: No Gastrointestinal: Hepatitis Psychosocial: Sleep Difficulties, Anxiety, Depression History of Blood Disorders: No Family History Patient reports no known family medical history. No Pertinent Family Hx Review of Systems Constitutional: see HPI, malaise, weakness Psychiatric/Neurological: Anxiety Physical Exam Physical Exam Vital Signs Vital Signs - First Documented 05/12/19 05/12/19 18:04 20:40 Temp 36.7 Pulse 89 Resp 18 B/P (MAP) 137/94 (108) Pulse Ox 96 O2 Delivery Room Air Capillary Refill : Less Than 3 Seconds Height, Weight, BMI Height: 5'11.00" Weight: 219lbs. oz. 99.006415gj; 29.37 BMI Method:Stated General Appearance: No Apparent Distress, WD/WN, Chronically ill HEENT: PERRL/EOMI, TMs Normal Neck: Non Tender, Supple Respiratory: Chest Non Tender, Lungs Clear, Normal Breath Sounds Cardiovascular: Regular Rate, Rhythm Gastrointestinal: Non Tender, Soft Extremity: Normal Capillary Refill Neurologic/Psychiatric: Alert, Oriented x3 Skin: Normal Color, Warm/Dry Results Results/Procedures Labs Laboratory Tests 05/12/19 18:52 Patient resulted labs reviewed. Short Stay Diagnosis Discharge Diagnosis-Short Stay Admission Diagnosis Assessment: Wellbutrin OD? Depression Anxiety Smoker Alcohol abuse Final Discharge Diagnosis Assessment: Wellbutrin OD? Depression Anxiety Smoker Alcohol abuse Conclusion Plan Plan: DC home Hold Wellbutrin CHC in 1 week Diagnosis/Problems Diagnosis/Problems (1) Drug overdose Status: Acute Qualifiers: Qualified Codes: T50.904A - Poisoning by unspecified drugs, medicaments and biological substances, undetermined, initial encounter Clinical Quality Measures DVT/VTE Risk/Contraindication: Risk Factor Score Per Nursin RFS Level Per Nursing on Admit: 1=Low/No VTE PPX RAMONA CASTELLANO DO May 13, 2019 12:05
[2019-05-13 12:50] VITALS: BP 144/89
--- NOTE | 2019-05-13 13:00 | NUR ---
DISCHARGE INSTRUCTIONS GIVEN TO PATIENT AT THIS TIME. PT DENIES ANY SUICIDAL IDEATION AT THIS TIME. ALERT AND ORIENTED AT THIS TIME WITHOUT ANY C/O. Addendum: 05/13/19 at 1349 by WILLA CUNNINGHAM RN THIS RN HAD DISCUSSION WITH PATIENTS FATHER ABOUT FOLLOW-UP CARE.
--- NOTE | 2019-05-13 13:30 | NUR ---
RUPERT PIMENTEL demonstrates understanding of discharge instructions and accurately returns instructions upon questioning. Copy of Post-Discharge Instructions and Medication Discharge Instructions given to PATIENT AND FAMILY. RUPERT PIMENTEL iS able to manage continuing needs after discharge. Patients belongings returned to PATIENT. Skin dry and intact; no breakdown noted. Patient discharged from [facility]- on 05/13/2018 at 1330 . RUPERT PIMENTEL left floor via WHEELCHAIR, accompanied by STAFF AND FAMILY.
[2019-05-13 13:58] VITALS: BP 140/86
--- NOTE | 2019-05-14 08:00 | NUR ---
Received dietary consult for MST score. Note pt has been discharged at this time. Toby Kirby, MS, RD, LD
== END 2019-05-13 13:53 | disposition home or self-care (01) ==
LOC: EDUNIT# 17:50 → ER 17:51 → 4TH 19:51
PROVIDERS: ADMIT Internal Medicine; ATTEND Internal Medicine
DX: T50.904A Poisoning by unspecified drugs, medicaments and biological substances, undetermined, initial encounter (principal); F17.210 Nicotine dependence, cigarettes, uncomplicated; F12.90 Cannabis use, unspecified, uncomplicated; F32.9 Major depressive disorder, single episode, unspecified; F41.9 Anxiety disorder, unspecified; F10.10 Alcohol abuse, uncomplicated; G43.909 Migraine, unspecified, not intractable, without status migrainosus; Z79.899 Other long term (current) drug therapy
CPT/HCPCS: 36415; 80053; 80306; 80320; 80329; 81000; 85025; 93005; G0378